=== PATIENT | male | born 1930 | race Caucasian/White ===

== ENCOUNTER 2017-02-24 09:39 | Observation (INO) | payer MEDICARE ==
[~2017-02-24 09:39] MED LIST: ALBU8I INH; ALPR.25 PO; AMLO5TAB22 PO; BEANTAB2 PO; BENZ100 PO; DOXY100T PO; LORTA10 PO; ZITH250T PO; [UNRECOGNIZED DRUG - CODE] PO
[2017-02-24 13:03] VITALS: BP 110/60; PULSE 82; RESP 18; O2SAT 100
[2017-02-24 13:15] LABS: ALKALINE PHOSPHATASE 67 U/L (45-117); ALT (GPT) 16 U/L (12-78); ANION GAP 5 MEQ/L (5-15); AST (GOT) 16 U/L (15-37); BICARBONATE 30.8 MEQ/L (21.0-32.0); BLOOD UREA NITROGEN 23 MG/DL (7-18); CHLORIDE 104 MEQ/L (98-107); GLOMERULAR FILTRATION RATE 73 ML/MIN (>89); SODIUM (NA) 140 MEQ/L (136-145); TOTAL BILIRUBIN ADULT 1.4 MG/DL (0.2-1.0)
[2017-02-24] MEDS ORDERED: ONDANSETRON HCL 4 MG/2 ML VIAL IVP PRN (13:15)
[2017-02-24] MEDS ORDERED: ACETAMINOPHEN 325 MG TAB PO PRN (13:15)
[2017-02-24] MEDS ORDERED: NALOXONE HCL 0.4 MG/ML AMP IV PRN (13:15)
[2017-02-24] MEDS ORDERED: LACTULOSE SYRUP 20 GM/30 ML CUP PO PRN (13:15)
[2017-02-24] MEDS ORDERED: MAGNESIUM HYDROXIDE SUSP 30 ML CUP PO PRN (13:15)
[2017-02-24] MEDS ORDERED: SENNOSIDES 8.6 MG TAB PO PRN (13:15)
[2017-02-24] MEDS ORDERED: BISACODYL 10 MG SUPP RECTAL PRN (13:15)
[2017-02-24] MEDS ORDERED: SODIUM CHLORIDE 0.9% FLUSH 10 ML FLUSH IV FLUSH PRN (13:15)
[2017-02-24 13:20] LABS: AUTOMATED NEUTROPHIL # 3.8 TH/MM3 (1.8-7.7); BASOPHIL % 0.4 % (0.0-2.0); EOSINOPHIL # 0.1 TH/MM3 (0-0.4); EOSINOPHIL % 1.1 % (0.0-4.0); HEMATOCRIT 39.5 % (39.0-51.0); HEMO FLAGS DIFF FINAL; LYMPH % 10.6 % (9.0-44.0); LYMPHOCYTE # 0.5 TH/MM3 (1.0-4.8); MEAN CELL VOLUME 92.5 FL (80.0-100.0); MEAN CORPUSCULAR HEMOGLOBIN 31.5 PG (27.0-34.0); MONO % 7.7 % (0.0-8.0); NEUT % 80.2 % (16.0-70.0); PLATELET COUNT 126 TH/MM3 (150-450); RED BLOOD COUNT 4.27 MIL/MM3 (4.50-5.90); RED CELL DISTRIBUTION WIDTH 13.6 % (11.6-17.2); WHITE BLOOD COUNT 4.7 TH/MM3 (4.0-11.0)
[2017-02-24] MEDS ORDERED: AMLO5TAB2 PO (13:23)
[2017-02-24] MEDS ORDERED: HYDR-3583 PO (13:24)
[2017-02-24] MEDS: SODIUM CHLOR 0.9% 1000 ML INJ 1,000 ML IV SCH ×2 (13:43→22:43)
[2017-02-24 13:44] LABS: BLOOD, URINE SMALL (NEG); COMMENT (UR) CULT NOT INDICATED; CULTURE IF INDICATED CULT NOT INDICATED; GLUCOSE,URINE NEG (NEG); HYALINE CAST, URINE 2 /lpf (RARE); KETONE, URINE 10 mg/dL (NEG); MUCUS URINE FEW /lpf (OCC); NITRITE,URINE NEG (NEG); PH, URINE 5.5 (5.0-8.5); SQUAMOUS EPITHELIAL CELL URINE 1 /hpf (0-5); URINE COLOR YELLOW (YELLW/STRAW)
--- NOTE | 2017-02-24 14:18 | PD ---
HPI Chief Complaint: Altered Mental Status Time Seen by Provider: 13:43 Travel History International Travel<30 days: No Contact w/Intl Traveler<30days: No Traveled to known affect area: No History of Present Illness HPI Patient is an 86-year-old male who comes in due to altered mental status. He does take Lortab and benzodiazepines, and he is unsure if he took the medications or if he took too many. His is currently in the hospital, and he has been very confused. Per EMS, he called 911 today because he thought his was kidnapped. He couldn't remember the past 2 days at all. He cannot report he parked his car. He is aware of the day, place, person, but he is quite confused. PFSH Past Medical History Hx Anticoagulant Therapy: No Arthritis: Yes Asthma: No Autoimmune Disease: No Anxiety: No Depression: No Heart Rhythm Problems: No Cancer: Yes (PROSTATE ) Cardiovascular Problems: Yes (HTN) High Cholesterol: No Chemotherapy: No Congestive Heart Failure: No COPD: No Cerebrovascular Accident: No Diabetes: No Diminished Hearing: No Diverticulitis: Yes Endocrine: No Gastrointestinal Disorders: No Genitourinary: Yes (PROSTATE CA) Hypertension: Yes Kidney Stones: Yes Musculoskeletal: Yes ("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,on pain management") Neurologic: Yes Psychiatric: No Respiratory: No Immunizations Current: Yes Myocardial Infarction: No Radiation Therapy: Yes Past Surgical History Appendectomy: Yes Cholecystectomy: Yes Coronary Artery Bypass Graft: No Eye Surgery: Yes (BILAT CATARACT) Genitourinary Surgery: Yes (RADIATION FOR PROSTATE CA) Hysterectomy: Yes (htn on meds) Joint Replacement: Yes (LEFT HIP) Other Surgery: Yes (MULTIPLE HEMANGIOMAS) Social History Alcohol Use: No (QUIT IN 1997) Tobacco Use: No (quit 1987) Substance Use: No Allergies-Medications (Allergen,Severity, Reaction): Coded Allergies: diclofenac (Unverified Allergy, Severe, BLEEDS, 02/24/17) etodolac (Unverified Allergy, Severe, BLEEDS, 02/24/17) flurbiprofen (Unverified Allergy, Severe, BLEEDS, 02/24/17) ibuprofen (Unverified Allergy, Severe, BLEEDS, 02/24/17) indomethacin (Unverified Allergy, Severe, BLEEDS, 02/24/17) ketoprofen (Unverified Allergy, Severe, BLEEDS, 02/24/17) ketorolac (Unverified Allergy, Severe, BLEEDS, 02/24/17) naproxen (Unverified Allergy, Severe, BLEEDS, 02/24/17) oxaprozin (Unverified Allergy, Severe, BLEEDS, 02/24/17) Reported Meds & Prescriptions Reported Meds & Active Scripts Active Reported Hydrocodone-Acetaminophen 10-325 mg Tab 1 Tab PO Q6H Amlodipine (Amlodipine Besylate) 5 Mg Tab 5 Mg PO BID Review of Systems ROS Limitations: Altered Mental Status Physical Exam Narrative GENERAL: Awake and alert, in no acute distress. SKIN: Focused skin assessment warm/dry. HEAD: Atraumatic. Normocephalic. EYES: Pupils equal and round. No scleral icterus. Extraocular movements intact. ENT: Mucous membranes pink and moist. NECK: Trachea midline. No JVD. CARDIOVASCULAR: Regular rate and rhythm. No murmur appreciated. RESPIRATORY: No accessory muscle use. Clear to auscultation. Breath sounds equal bilaterally. GASTROINTESTINAL: Abdomen soft, non-tender, nondistended. MUSCULOSKELETAL: No obvious deformities. No clubbing. No cyanosis. No edema. NEUROLOGICAL: Awake and alert, but confused. No obvious cranial nerve deficits. Motor grossly within normal limits. Normal speech. PSYCHIATRIC: Appropriate mood and affect; insight and judgment normal. Data Data Orders Orders Chest, Pa & Lat (02/24/17 ) Labs Laboratory Tests Test 02/24/17 09:55 02/24/17 10:52 White Blood Count 4.7 TH/MM3 Red Blood Count 4.27 MIL/MM3 Hemoglobin 13.4 GM/DL Hematocrit 39.5 % Mean Corpuscular Volume 92.5 FL Mean Corpuscular Hemoglobin 31.5 PG Mean Corpuscular Hemoglobin Concent 34.0 % Red Cell Distribution Width 13.6 % Platelet Count 126 TH/MM3 Mean Platelet Volume 7.5 FL Neutrophils (%) (Auto) 80.2 % Lymphocytes (%) (Auto) 10.6 % Monocytes (%) (Auto) 7.7 % Eosinophils (%) (Auto) 1.1 % Basophils (%) (Auto) 0.4 % Neutrophils # (Auto) 3.8 TH/MM3 Lymphocytes # (Auto) 0.5 TH/MM3 Monocytes # (Auto) 0.4 TH/MM3 Eosinophils # (Auto) 0.1 TH/MM3 Basophils # (Auto) 0.0 TH/MM3 CBC Comment DIFF FINAL Differential Comment Blood Urea Nitrogen 23 MG/DL Creatinine 0.97 MG/DL Random Glucose 99 MG/DL Total Protein 7.1 GM/DL Albumin 3.9 GM/DL Calcium Level 9.1 MG/DL Alkaline Phosphatase 67 U/L Aspartate Amino Transf (AST/SGOT) 16 U/L Alanine Aminotransferase (ALT/SGPT) 16 U/L Total Bilirubin 1.4 MG/DL Sodium Level 140 MEQ/L Potassium Level 4.0 MEQ/L Chloride Level 104 MEQ/L Carbon Dioxide Level 30.8 MEQ/L Anion Gap 5 MEQ/L Estimat Glomerular Filtration Rate 73 ML/MIN Troponin I LESS THAN 0.02 NG/ML Urine Color YELLOW Urine Turbidity CLEAR Urine pH 5.5 Urine Specific [place] 1.021 Urine Protein 30 mg/dL Urine Glucose (UA) NEG mg/dL Urine Ketones 10 mg/dL Urine Occult Blood SMALL Urine Nitrite NEG Urine Bilirubin NEG Urine Urobilinogen 4.0 MG/DL Urine Leukocyte Esterase NEG Urine RBC 8 /hpf Urine WBC 1 /hpf Urine Squamous Epithelial Cells 1 /hpf Urine Hyaline Casts 2 /lpf Urine Mucus FEW /lpf Microscopic Urinalysis Comment CULT NOT INDICATED MDM Medical Decision Making Medical Screen Exam Complete: Yes Emergency Medical Condition: Yes Medical Record Reviewed: Yes Interpretation(s) ECG shows normal sinus rhythm at 75 with a right bundle branch block. Differential Diagnosis Electrolyte abnormality versus dehydration versus medication overdose versus infection Narrative Course Patient is a 86-year-old male comes in due to altered mental status. Exam shows patient to be confused, there are no other neurologic abnormalities. IV established, labs sent. Labs show no acute abnormalities. CT of the head performed shows no acute abnormalities. Chest x-ray shows no acute abnormalities. And I do not believe he is safe to go home on his own. This may be due to the medications that he is taking. He'll be placed in observation for further management. Diagnosis Primary Impression: Altered mental status Qualified Codes: R41.0 - Disorientation, unspecified Admitting Information Admitting Physician Requests: Observation Condition: Stable Amanda Wasserman MD Feb 24, 2017 14:18
--- NOTE | 2017-02-24 14:18 | HHI.HP ---
[facility] Primary Care Physician Oneal Stout MD Admission Diagnosis Diagnoses: Chief Complaint: AMS, confusion Travel History International Travel<30 Days: No Contact w/Intl Traveler <30 Da: No Traveled to Known Affected Are: No History of Present Illness Written by Mary Gonzales, acting as scribe for Dr. Logan on 02/24/17 at 14:06. This note was transcribed by scribe SHAHAB Robertson. I, Dr. Alec Logan personally performed the history, physical exam, and medical decision making; and confirmed the accuracy of the information in the transcribed note. Authenticated by Dr. Alec Logan on 02/24/17 at 22:56. 86-year-old male with history of hypertension, chronic pain, hemangiomas, presents with altered mental status, confusion, chest pain. The patient is currently awake, alert, oriented to self, knows he is in a hospital in [place], [place] (although initially thought he was in [place]), states the date is February 2017, and states the president is "Dano Chaidez". The patient reports he woke up today and realized he could not remember anything over the past 2 days. He also reports severe pounding diffuse chest pains and upper abdominal pain over the past few days. He states the pain is worse after he eats. He says he was previously told to eat small meals and it will go away. He also complains of a new nonproductive cough. Denies fevers/chills. He complains of multiple aches and pains in his back and at the site of his hemangiomas. The patient does report he takes [place] 10mg 4x a day for pain. He says if he goes a few hours without the pain meds, his entire body gets "tied up in knots." He denies dysuria but does report increased urinary frequency over the past few months. He has been tolerating oral intake. The patient is concerned about his memory loss and confusion. He is worried that it may be related to a reaction to his pain medications although he has been on the same dose for awhile. He does say that sometimes he will get confused and call his by his son's name , not remember his neighbors names, and this has been going on for awhile. The patient denies ever being evaluated by neurology in the past however his primary care was in the process of working this up and scheduling a head CT. The patient has no other medical complaints to report at this time. Of note, his is a patient here at [facility] on the 9th floor. He states his has a much better memory and helps him remember. Of note, patient has hard time remembering his medical history therefore most is obtained from EMR. Review of Systems ROS Limitations: Poor Historian Except as stated in HPI: all other systems reviewed are Neg Past Family Social History Past Medical History Hypertension Chronic pain Multiple Hemangiomas Prostate cancer s/p radiation Past Surgical History Left hip replacement Cataract surgery Multiple hemangioma resections Reported Medications Hydrocodone-Acetaminophen 10-325 mg Tab 1 Tab PO Q6H Amlodipine (Amlodipine Besylate) 5 Mg Tab 5 Mg PO BID Allergies: Coded Allergies: diclofenac (Unverified Allergy, Severe, BLEEDS, 02/24/17) etodolac (Unverified Allergy, Severe, BLEEDS, 02/24/17) flurbiprofen (Unverified Allergy, Severe, BLEEDS, 02/24/17) ibuprofen (Unverified Allergy, Severe, BLEEDS, 02/24/17) indomethacin (Unverified Allergy, Severe, BLEEDS, 02/24/17) ketoprofen (Unverified Allergy, Severe, BLEEDS, 02/24/17) ketorolac (Unverified Allergy, Severe, BLEEDS, 02/24/17) naproxen (Unverified Allergy, Severe, BLEEDS, 02/24/17) oxaprozin (Unverified Allergy, Severe, BLEEDS, 02/24/17) Active Ordered Medications Current Medications Medications (Trade) Dose Ordered Sig/Lucian Route Start Time Stop Time Status Last Admin Sodium Chloride 1,000 ml @ 100 mls/hr Q10H IV 02/24/17 13:01 02/24/17 13:43 (NS Flush) 2 ml UNSCH PRN IV FLUSH 02/24/17 13:15 (NS Flush) 2 ml BID IV FLUSH 02/24/17 21:00 (Tylenol) 650 mg Q4H PRN PO 02/24/17 13:15 (Zofran Inj) 4 mg Q6H PRN IVP 02/24/17 13:15 (Narcan Inj) 0.4 mg UNSCH PRN IV 02/24/17 13:15 (Sandee-Colace) 1 tab BID PO 02/24/17 21:00 (Milk Of Magnesia Liq) 30 ml Q12H PRN PO 02/24/17 13:15 (Senokot) 17.2 mg Q12H PRN PO 02/24/17 13:15 (Dulcolax Supp) 10 mg DAILY PRN RECTAL 02/24/17 13:15 (Lactulose Liq) 30 ml DAILY PRN PO 02/24/17 13:15 ([place] 7.5-325 Mg) 1 tab Q6H PRN PO 02/24/17 13:15 Family History Mother with meningioma Social History Quit tobacco and alcohol use 30-40years ago 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 SKIN: Warm and dry. No rash. Multiple diffuse hemangiomas HEAD: Normocephalic. Atraumatic. EYES: Pupils equal and round. No scleral icterus. No injection or drainage. ENT: No nasal bleeding or discharge. Mucous membranes pink and moist. NECK: Supple. Trachea midline. CARDIOVASCULAR: Regular rate and rhythm. S1, S2 noted. No murmur appreciated. RESPIRATORY: No accessory muscle use. Clear to auscultation. Breath sounds equal bilaterally. GASTROINTESTINAL: Abdomen soft, non-tender, nondistended. Normoactive bowel sounds x4. MUSCULOSKELETAL: No obvious deformities. Extremities without clubbing, cyanosis , or edema. NEUROLOGICAL: Awake and alert. No obvious cranial nerve deficits. Motor grossly within normal limits. Normal speech. PSYCHIATRIC: Appropriate mood and affect; insight and judgment fair. Laboratory Laboratory Tests Test 02/24/17 09:55 02/24/17 10:52 White Blood Count 4.7 Red Blood Count 4.27 Hemoglobin 13.4 Hematocrit 39.5 Mean Corpuscular Volume 92.5 Mean Corpuscular Hemoglobin 31.5 Mean Corpuscular Hemoglobin Concent 34.0 Red Cell Distribution Width 13.6 Platelet Count 126 Mean Platelet Volume 7.5 Neutrophils (%) (Auto) 80.2 Lymphocytes (%) (Auto) 10.6 Monocytes (%) (Auto) 7.7 Eosinophils (%) (Auto) 1.1 Basophils (%) (Auto) 0.4 Neutrophils # (Auto) 3.8 Lymphocytes # (Auto) 0.5 Monocytes # (Auto) 0.4 Eosinophils # (Auto) 0.1 Basophils # (Auto) 0.0 CBC Comment DIFF FINAL Differential Comment Blood Urea Nitrogen 23 Creatinine 0.97 Random Glucose 99 Total Protein 7.1 Albumin 3.9 Calcium Level 9.1 Alkaline Phosphatase 67 Aspartate Amino Transf (AST/SGOT) 16 Alanine Aminotransferase (ALT/SGPT) 16 Total Bilirubin 1.4 Sodium Level 140 Potassium Level 4.0 Chloride Level 104 Carbon Dioxide Level 30.8 Anion Gap 5 Estimat Glomerular Filtration Rate 73 Troponin I LESS THAN 0.02 Urine Color YELLOW Urine Turbidity CLEAR Urine pH 5.5 Urine Specific [place] 1.021 Urine Protein 30 Urine Glucose (UA) NEG Urine Ketones 10 Urine Occult Blood SMALL Urine Nitrite NEG Urine Bilirubin NEG Urine Urobilinogen 4.0 Urine Leukocyte Esterase NEG Urine RBC 8 Urine WBC 1 Urine Squamous Epithelial Cells 1 Urine Hyaline Casts 2 Urine Mucus FEW Microscopic Urinalysis Comment CULT NOT INDICATED Result Diagram: 02/24/1795402/24/17954 Caprini VTE Risk Assessment Caprini VTE Risk Assessment: Mod/High Risk (score >= 2) Caprini Risk Assessment Model Point Value = 1 Point Value = 2 Point Value = 3 Point Value = 5 Age 41-60 Minor surgery BMI > 25 kg/m2 Swollen legs Varicose veins or History of unexplained or recurrent spontaneous Oral contraceptives or hormone replacement Sepsis (< 1 month) Serious lung disease, including pneumonia (< 1 month) Abnormal pulmonary function Acute myocardial infarction Congestive heart failure (< 1 month) History of inflammatory bowel disease Medical patient at bed rest Age 61-74 Arthroscopic surgery Major open surgery (> 45 min) Laparoscopic surgery (> 45 min) Malignancy Confined to bed (> 72 hours) Immobilizing plaster cast Central venous access Age >= 75 History of VTE Family history of VTE Factor V Leiden Prothrombin [id number] Lupus anticoagulant Anticardiolipin antibodies Elevated serum homocysteine Heparin-induced thrombocytopenia Other congenital or acquired thrombophilia Stroke (< 1 month) Elective arthroplasty Hip, pelvis, or leg fracture Acute spinal cord injury (< 1 month) Prophylaxis Regimen Total Risk Factor Score Risk Level Prophylaxis Regimen 0-1 Low Early ambulation 2 Moderate Order ONE of the following: *Sequential Compression Device (SCD) *Heparin 5000 units SQ BID 3-4 Higher Order ONE of the following medications: *Heparin 5000 units SQ TID *Enoxaparin/Lovenox 40 mg SQ daily (WT < 150 kg, CrCl > 30 mL/min) *Enoxaparin/Lovenox 30 mg SQ daily (WT < 150 kg, CrCl > 10-29 mL/min) *Enoxaparin/Lovenox 30 mg SQ BID (WT < 150 kg, CrCl > 30 mL/min) AND/OR *Sequential Compression Device (SCD) 5 or more Highest Order ONE of the following medications: *Heparin 5000 units SQ TID (Preferred with Epidurals) *Enoxaparin/Lovenox 40 mg SQ daily (WT < 150 kg, CrCl > 30 mL/min) *Enoxaparin/Lovenox 30 mg SQ daily (WT < 150 kg, CrCl > 10-29 mL/min) *Enoxaparin/Lovenox 30 mg SQ BID (WT < 150 kg, CrCl > 30 mL/min) AND *Sequential Compression Device (SCD) Assessment and Plan Problem List: (1) Altered mental status ICD Code: R41.82 - Altered mental status, unspecified Status: Acute (2) Chest pain ICD Code: R07.9 - Chest pain Status: Acute Assessment and Plan 86-year-old male with history of hypertension, chronic pain, hemangiomas, presents with altered mental status, confusion, chest pain. Acute Encephalopathy: presented with AMS, memory loss, confusion. Suspect underlying dementia in combination with pain medications, need to rule out metabolic/toxic etiology. Head CT images reviewed, no acute findings. UA and CXR unremarkable. CBC and BMP essentially unremarkable. -Consult ST/OT/PT -Monitor neuro checks -decrease patient's [place] dose -hold patient's norvasc with borderline hypotension -check orthostatic vital signs -supportive treatment with IVF -consider further imaging vs neurology evaluation tomorrow if no improvement Atypical Chest Pain: sounds GI related, worse after meals. Initial troponin negative. 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
[2017-02-24] MEDS ORDERED: NITROGLYCERIN 0.4 MG SL 25 TABS/BTL SL PRN (15:00)
--- NOTE | 2017-02-24 15:56 | EKG ---
Date Performed: 02/24/2017 Time Performed: 09:59:20 PTAGE: 86 years EKG: Possible ectopic atrial rhythm with first-degree AV block RIGHT BUNDLE BRANCH BLOCK Compare d to previous tracing, the ectopic atrial rhythm is new. Otherwise, no change. ABNORMAL ECG PREVIOUS TRACING 05/06/2014 07.33.02 DOCTOR: Michael Aponte Interpretating Date/Time 02/24/2017 15:55:35
[2017-02-24 16:32] VITALS: BP_SYST 117; BP_SYST 163; BP_DIAS 60; BP_DIAS 77; PULSE 82; RESP 20; TEMP 97.8; O2SAT 96
[2017-02-24 16:40] VITALS: PULSE 86
[2017-02-24 16:51] LABS: CREATINE KINASE 121 U/L (39-308)
[2017-02-24 20:49] VITALS: BP_SYST 114; BP_SYST 152; BP_SYST 165; BP_DIAS 64; BP_DIAS 72; BP_DIAS 76; PULSE 84; RESP 18; TEMP 98.7; O2SAT 97
[2017-02-24] MEDS: SODIUM CHLORIDE 0.9% FLUSH 10 ML FLUSH IV FLUSH SCH (21:00)
--- NOTE | 2017-02-24 21:40 | EKG ---
Date Performed: 02/24/2017 Time Performed: 16:14:20 PTAGE: 86 years EKG: Sinus rhythm RIGHT BUNDLE BRANCH BLOCK ABNORMAL ECG PREVIOUS TRACING : 02/24/2017 09.59 No significant change from previous tracing noted. DOCTOR: Carlos Eduardo Martinez Interpretating Date/Time 02/24/2017 21:38:06
[2017-02-24] MEDS: ACETAMINOPHEN/HYDROcodone 325 MG/7.5 MG TAB PO PRN (22:38)
[2017-02-24] MEDS: DOCUSATE SODIUM 50 MG/SENNA 8.6 MG TAB PO SCH (22:38)
[2017-02-24 23:21] LABS: CREATINE KINASE 143 U/L (39-308)
[2017-02-24 23:30] VITALS: BP 158/78; PULSE 67; RESP 18; TEMP 98.1; O2SAT 97
[2017-02-25 01:23] VITALS: PULSE 86
[2017-02-25 04:25] VITALS: BP 155/75; PULSE 77; RESP 18; TEMP 97.9; O2SAT 95
[2017-02-25 05:31] LABS: AUTOMATED NEUTROPHIL # 3.2 TH/MM3 (1.8-7.7); BASOPHIL % 0.6 % (0.0-2.0); EOSINOPHIL # 0.2 TH/MM3 (0-0.4); EOSINOPHIL % 3.4 % (0.0-4.0); HEMATOCRIT 36.6 % (39.0-51.0); HEMO FLAGS DIFF FINAL; LYMPH % 18.3 % (9.0-44.0); LYMPHOCYTE # 0.9 TH/MM3 (1.0-4.8); MEAN CELL VOLUME 90.5 FL (80.0-100.0); MEAN CORPUSCULAR HEMOGLOBIN 30.7 PG (27.0-34.0); MEAN CORPUSCULAR HGB CONC 33.9 % (32.0-36.0); MONO % 12.2 % (0.0-8.0); NEUT % 65.5 % (16.0-70.0); PLATELET COUNT 119 TH/MM3 (150-450); RED BLOOD COUNT 4.04 MIL/MM3 (4.50-5.90); RED CELL DISTRIBUTION WIDTH 13.2 % (11.6-17.2); WHITE BLOOD COUNT 4.9 TH/MM3 (4.0-11.0)
[2017-02-25 05:58] LABS: BICARBONATE 27.6 MEQ/L (21.0-32.0); POTASSIUM 3.4 MEQ/L (3.5-5.1)
[2017-02-25 06:02] LABS: HDL CHOLESTEROL 54.2 MG/DL (40.0-60.0)
[2017-02-25 07:00] VITALS: PULSE 85
[2017-02-25 07:54] VITALS: BP_SYST 112; BP_SYST 142; BP_SYST 148; BP_DIAS 58; BP_DIAS 69; BP_DIAS 75; PULSE 84; RESP 17; TEMP 98.2; O2SAT 96
[2017-02-25] MEDS ORDERED: POTASSIUM CHLORIDE 20 MEQ CONTROLLED RELEASE TAB PO ONE (08:00)
[2017-02-25] MEDS: DOCUSATE SODIUM 50 MG/SENNA 8.6 MG TAB PO SCH (08:33)
[2017-02-25] MEDS: ACETAMINOPHEN/HYDROcodone 325 MG/7.5 MG TAB PO PRN (08:33)
[2017-02-25] MEDS: SODIUM CHLORIDE 0.9% FLUSH 10 ML FLUSH IV FLUSH SCH (08:33)
[2017-02-25] MEDS: SODIUM CHLOR 0.9% 1000 ML INJ 1,000 ML IV SCH (08:34)
[2017-02-25] MEDS ORDERED: PANTOPRAZOLE SOD 40 MG DELAYED RELEASE TAB PO SCH (09:00)
[2017-02-25] MEDS ORDERED: CYANOCOBALAMIN 1000 MCG/ML VIAL IM SCH (10:30)
[2017-02-25 11:44] VITALS: BP 168/87; PULSE 92; RESP 18; TEMP 98.5; O2SAT 97
--- NOTE | 2017-02-25 14:06 | HHI.FF ---
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 My clinical findings support the need for the requested home health care services because: Ltd mobility - disease progression Med compliance is questionable Limited ability to care for self Impaired cognition/judgement I certify that my clinical findings support that this patient is homebound because: Impaired cognitive ability/safety Unsafe to leave home unassisted Mary Gonzales PA-C Feb 25, 2017 14:06
[2017-02-25] MEDS ORDERED: CYAN1TAB24 PO (14:09)
--- NOTE | 2017-02-25 14:10 | HHI.DCPOC ---
Discharge Care Plan Diagnosis: (1) Orthostatic hypotension (2) Dizziness (3) Memory deficit (4) Multiple hemangiomas Goals to Promote Your Health * To prevent worsening of your condition and complications * To maintain your health at the optimal level Directions to Meet Your Goals Take your medications as prescribed Follow your dietary instruction Follow activity as directed Keep your appointments as scheduled Take your immunizations and boosters as scheduled If your symptoms worsen call your PCP, if no PCP go to Urgent Care Center or Emergency Room Smoking is Dangerous to Your Health. Avoid second hand smoke Call the 24-hour hour crisis hotline for domestic abuse at Mary Gonzales PA-C Feb 25, 2017 14:10
[2017-02-25] MEDS ORDERED: PANT40TA3 PO (14:27)
--- NOTE | 2017-02-25 14:49 | HHI.PR ---
Subjective Remarks Follow up for AMS, confusion, dizziness, chest pain. The patient is currently awake, alert, oriented to person, place, and year. He reports feeling better today. Denies any further dizziness or confusion. Orthostatic blood pressures have been positive, patient admits he has been getting very dizzy upon standing at home however denies any significant dizziness today. He denies any further chest pains. He is tolerating oral intake, denies any nausea or vomiting. He has been ambulating his room without difficulty. He wants to go home. He is agreeable to [facility]. Objective Vitals Vital Signs Date Time Temp Pulse Resp B/P (MAP) Pulse Ox O2 Delivery O2 Flow Rate FiO2 02/25/17 11:44 98.5 92 18 168/87 (114) 97 02/25/17 07:54 98.2 84 17 148/75 (99) 96 142/69 (93) 112/58 (76) 02/25/17 04:25 97.9 77 18 155/75 (101) 95 02/25/17 01:23 86 02/24/17 23:30 98.1 67 18 158/78 (104) 97 02/24/17 20:49 98.7 84 18 165/76 (105) 97 152/72 (98) 114/64 (81) 02/24/17 16:40 86 02/24/17 16:32 97.8 82 20 163/77 (105) 96 153/77 (102) 117/60 (79) 02/24/17 14:41 Result Diagram: 02/25/17 0459 02/25/17 0459 Objective Remarks GENERAL: Well-nourished, well-developed pleasant elderly male patient in [facility]. SKIN: Warm and dry. No rash. Multiple hemangiomas. HEENT: Normocephalic. Atraumatic.Pupils equal and round. Mucous membranes pink and moist. NECK: Supple. Trachea midline. CARDIOVASCULAR: Regular rate and rhythm. S1, S2 noted. No murmur appreciated. RESPIRATORY: No accessory muscle use. Clear to auscultation. Breath sounds equal bilaterally. GASTROINTESTINAL: Abdomen soft, non-tender, nondistended. Normoactive bowel sounds x4. MUSCULOSKELETAL: No obvious deformities. Extremities without clubbing, cyanosis , or edema. NEUROLOGICAL: Awake and alert. No obvious cranial nerve deficits. Motor grossly within normal limits. 5/5 muscle strength in bilateral upper and lower extremities. Normal speech. PSYCHIATRIC: Appropriate mood and affect; insight and judgment fair to normal. Medications and IVs Current Medications Medications (Trade) Dose Ordered Sig/Lucian Route Start Time Stop Time Status Last Admin Sodium Chloride 1,000 ml @ 100 mls/hr Q10H IV 02/24/17 13:01 02/25/17 08:34 (NS Flush) 2 ml UNSCH PRN IV FLUSH 02/24/17 13:15 (NS Flush) 2 ml BID IV FLUSH 02/24/17 21:00 02/25/17 08:33 (Tylenol) 650 mg Q4H PRN PO 02/24/17 13:15 (Zofran Inj) 4 mg Q6H PRN IVP 02/24/17 13:15 (Narcan Inj) 0.4 mg UNSCH PRN IV 02/24/17 13:15 (Sandee-Colace) 1 tab BID PO 02/24/17 21:00 02/25/17 08:33 (Milk Of Magnesia Liq) 30 ml Q12H PRN PO 02/24/17 13:15 (Senokot) 17.2 mg Q12H PRN PO 02/24/17 13:15 (Dulcolax Supp) 10 mg DAILY PRN RECTAL 02/24/17 13:15 (Lactulose Liq) 30 ml DAILY PRN PO 02/24/17 13:15 (Valmeyer 7.5-325 Mg) 1 tab Q6H PRN PO 02/24/17 13:15 02/25/17 08:33 (Protonix) 40 mg DAILY PO 02/25/17 09:00 02/25/17 08:33 (Nitrostat Sl) 0.4 mg Q5M PRN SL 02/24/17 15:00 (Vitamin B12 Inj) 1,000 mcg DAILY IM 02/25/17 10:30 03/04/17 10:29 02/25/17 12:43 A/P Problem List: (1) Altered mental status ICD Code: R41.82 - Altered mental status, unspecified Status: Acute (2) Chest pain ICD Code: R07.9 - Chest pain Status: Acute Assessment and Plan 86-year-old male with history of hypertension, chronic pain, hemangiomas, presents with altered mental status, confusion, chest pain. Acute Encephalopathy: presented with AMS, memory loss, confusion. Suspect underlying dementia in combination with pain medications, need to rule out metabolic/toxic etiology. Head CT images reviewed, no acute findings. UA and CXR unremarkable. CBC and BMP essentially unremarkable. -Monitor neuro checks -decrease patient's Valmeyer dose -hold patient's norvasc with orthostatic hypotension -supportive treatment with IVF -patient much improved after holding Norvasc and decreasing Valmeyer, patient instructed to discontinue Norvasc, and cut back to 1/2 tablet of Valmeyer -encephalopathy resolved -case management arranged [facility] with PT/OT/Nursing/manager of allied health services at discharge Atypical Chest Pain: sounds GI related, worse after meals. Initial troponin negative. -ACS rule out with negative serial cardiac enzymes and EKGs -Monitor on telemetry -nitro prn -started on protonix with possible GI etiology -chest pain resolved Hypertension: with orthostatic hypotension, systolic in low 100s -discontinued patient's norvasc -BP improved -patient instructed to check BP daily, keep log, and report to PCP Vitamin B12 Deficiency -started on vitamin b12 1000mcg daily DVT Prophylaxis: teds/SCDs Discharge Planning Discharge patient to home with C PT/OT/Nursing/manager of allied health services Condition on discharge: Improved Regular Diet as tolerated Ad Kimi activity Rx written: cyanocobalamin 1000mcg daily, protonix 40mg daily Follow-up with primary care physician Dr. Stout within 1 week Problem Qualifiers (1) Altered mental status: Qualified Codes: R41.0 - Disorientation, unspecified Mary Gonzales PA-C Feb 25, 2017 14:48
--- NOTE | 2017-02-27 08:42 | RADRPT ---
EXAM DATE/TIME: 02/24/2017 10:13 [facility] COMPARISON: CT BRAIN W/O CONTRAST, May 05, 2014, 20:25. INDICATIONS : Altered mental status. RADIATION DOSE: 56.35 CTDIvol (mGy) MEDICAL HISTORY : unobtainable SURGICAL HISTORY : unobtainable ENCOUNTER: Initial ACUITY: 1 day PAIN SCALE: 0/10 LOCATION: Bilateral head TECHNIQUE: Multiple contiguous axial images were obtained of the head. Using automated exposure control and adj ustment of the mA and/or kV according to patient size, radiation dose was kept as low as reasonably a chievable to obtain optimal diagnostic quality images. DICOM format image data is available electro nically for review and comparison. FINDINGS: CEREBRUM: There is low attenuation throughout the white matter. The ventricles are normal for age. No evidence of midline shift, mass lesion, hemorrhage or acute infarction. No extra-axial fluid collections are seen. POSTERIOR FOSSA: The cerebellum and brainstem are intact. The 4th ventricle is midline. The cerebellopontine angle i s unremarkable. EXTRACRANIAL: The visualized portion of the orbits is intact. SKULL: The calvaria is intact. No evidence of skull fracture. CONCLUSION: Chronic ischemic small vessel vasculopathy. No acute intracranial abnormalities. Michael Herring MD on February 24, 2017 at 10:34 Board Certified Radiologist. This report was verified electronically.
--- NOTE | 2017-02-27 08:43 | RADRPT ---
EXAM DATE/TIME: 02/24/2017 10:26 [facility] COMPARISON: CHEST SINGLE AP, April 21, 2016, 11:39. INDICATIONS : Weakness and altered mental status. MEDICAL HISTORY : Hypertension. Diverticulitis. Renal calculi. Prostate cancer with radiation SURGICAL HISTORY : Appendectomy. Cholecystectomy. Left hip surgery, bilateral cataract surgery ENCOUNTER: Initial ACUITY: 1 day PAIN SCORE: 2/10 LOCATION: Bilateral upper chest FINDINGS: PA and lateral views of the chest demonstrates hyperinflation which can be seen with CO PD. No infiltrates are seen. Scarring left upper lobe with rib deformities. Heart is normal in size. The mediastinal contours are unremarkable. Osseous structures are intact. CONCLUSION: Hyperinflation which can be seen with COPD. No evidence for an infiltrate. Michael Herring MD on February 24, 2017 at 10:56 Board Certified Radiologist. This report was verified electronically.
== END 2017-02-25 16:11 | disposition home or self-care (01) ==
LOC: EDACCT# → NEPC 09:39 → NEDA 12:19 → NEPGCP 14:29
PROVIDERS: ADMIT Hospitalist; ATTEND Hospitalist
DX: I95.1 Orthostatic hypotension (principal); R42 Dizziness and giddiness; R41.82 Altered mental status, unspecified; I10 Essential (primary) hypertension; G93.40 Encephalopathy, unspecified; R07.89 Other chest pain; D18.00 Hemangioma unspecified site; I44.0 Atrioventricular block, first degree; I45.10 Unspecified right bundle-branch block; Z85.46 Personal history of malignant neoplasm of prostate; Z87.891 Personal history of nicotine dependence; E53.8 Deficiency of other specified B group vitamins; Z92.3 Personal history of irradiation; Z79.899 Other long term (current) drug therapy
CPT/HCPCS: 70450; 71020; 80048; 80053; 80061; 81001; 82550; 82607; 84484; 85025; 86592; 93005; 96125; 96365; 96366; 96372; 97162; 97166; 99285; G0378; G8987; G8988; J3420; J7030

== ENCOUNTER 2017-03-03 22:01 | Emergency (ER) | payer MEDICARE ==
[~2017-03-03 22:01] MED LIST changes: -ALBU8I INH; -ALPR.25 PO; -AMLO5TAB22 PO; -BEANTAB2 PO; -BENZ100 PO; +CYAN1TAB24 PO; -DOXY100T PO; +HYDR-3583 PO; -LORTA10 PO; +PANT40TA3 PO; -ZITH250T PO; -[UNRECOGNIZED DRUG - CODE] PO
[2017-03-03 22:14] VITALS: BP 165/103; PULSE 127; RESP 16; TEMP 98.1; O2SAT 97
[2017-03-03 22:22] VITALS: BP 146/80; PULSE 71; RESP 18; O2SAT 98
--- NOTE | 2017-03-03 22:49 | PD ---
HPI Chief Complaint: Hypertension Time Seen by Provider: 22:18 Travel History International Travel<30 days: No Contact w/Intl Traveler<30days: No Traveled to known affect area: No History of Present Illness HPI The patient is an 86 year old male who presents to the [facility] emergency department with a history of noting earlier this evening that his blood pressure was elevated after he began to feel dizzy. The patient reports that he 's had dizziness in the past, however he thought that this may be related to his blood pressure. When he took his blood pressure his systolic was greater than 200. The patient reports that he became increasingly anxious, therefore he called ambulance services. He reports that he has chronic chest pain related to a hemangioma in his chest which is unchanged from baseline. He denies having any shortness of breath. He reports that he has numbness to the soles of bilateral feet, however he reports that this is also chronic related to hemangiomas. He denies having any abdominal pain, nausea, vomiting, or diarrhea. He reports that he has been eating and drinking well. He reports that his last bowel movement was yesterday. The patient reports that he is on amlodipine for his blood pressure. He reports that this was recently discontinued, however he did discuss that with his primary care physician and started back on the medication. The patient is followed by Dr. Stout for his primary care. On review of systems otherwise patient denies any recent fevers, cough, congestion, neck pain, new urinary symptoms, one-sided weakness, slurred speech, facial droop, difficulty with word finding ability, dizziness currently, or new numbness or tingling to his extremities PFSH Past Medical History Narrative Medical The patient's past medical history is significant for hypertension, chronic pain related to his hemangiomas, history of multiple sites of hemangiomas, history of prostate cancer status post radiation therapy. Hx Anticoagulant Therapy: No Arthritis: Yes Asthma: No Autoimmune Disease: No Anxiety: No Depression: No Heart Rhythm Problems: No Cancer: Yes (PROSTATE ) Cardiovascular Problems: Yes (HTN) High Cholesterol: No Chemotherapy: No Chest Pain: Yes Congestive Heart Failure: No COPD: No Cerebrovascular Accident: No Diabetes: No Diminished Hearing: No Diverticulitis: Yes Endocrine: No Gastrointestinal Disorders: No Genitourinary: Yes (PROSTATE CA) Hypertension: Yes Immune Disorder: No Kidney Stones: Yes Medical other: Yes (HEMANGIOMAS) Musculoskeletal: Yes ("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,on pain management") Neurologic: Yes Psychiatric: No Respiratory: No Immunizations Current: Yes Myocardial Infarction: No Radiation Therapy: Yes (HX FOR PROSTATE CA) Thyroid Disease: No Past Surgical History Narrative Surgical The patient's past surgical history is significant for left hip replacement, cataract surgery, history of multiple hemangioma resections. Appendectomy: Yes Cholecystectomy: Yes Coronary Artery Bypass Graft: No Eye Surgery: Yes (BILAT CATARACT) Genitourinary Surgery: Yes (RADIATION FOR PROSTATE CA) Hysterectomy: Yes (htn on meds) Joint Replacement: Yes (LEFT HIP) Other Surgery: Yes (MULTIPLE HEMANGIOMAS) Social History Alcohol Use: No (QUIT IN 1997) Tobacco Use: No (quit 1987) Substance Use: No Allergies-Medications (Allergen,Severity, Reaction): Coded Allergies: diclofenac (Unverified Allergy, Severe, BLEEDS, 03/03/17) etodolac (Unverified Allergy, Severe, BLEEDS, 03/03/17) flurbiprofen (Unverified Allergy, Severe, BLEEDS, 03/03/17) ibuprofen (Unverified Allergy, Severe, BLEEDS, 03/03/17) indomethacin (Unverified Allergy, Severe, BLEEDS, 03/03/17) ketoprofen (Unverified Allergy, Severe, BLEEDS, 03/03/17) ketorolac (Unverified Allergy, Severe, BLEEDS, 03/03/17) naproxen (Unverified Allergy, Severe, BLEEDS, 03/03/17) oxaprozin (Unverified Allergy, Severe, BLEEDS, 03/03/17) Reported Meds & Prescriptions Reported Meds & Active Scripts Active Pantoprazole (Pantoprazole Sodium) 40 Mg Tab 40 Mg PO DAILY B12 (Cyanocobalamin) 1,000 Mcg Tab 1 Tab PO DAILY Reported Hydrocodone-Acetaminophen 10-325 mg Tab 1 Tab PO Q6H Review of Systems Except as stated in HPI: all other systems reviewed are Neg General / Constitutional: No: Fever Eyes: No: Visual changes HENT: No: Headaches Cardiovascular: Positive: Chest Pain or Discomfort (chronic related to a hemangioma in his chest), No: Dyspnea on exertion Respiratory: No: Shortness of Breath Gastrointestinal: No: Nausea, Vomiting, Diarrhea, Abdominal Pain, Constipation , Indigestion, Loss of Appetite Genitourinary: No: Urgency, Frequency, Dysuria Musculoskeletal: No: Pain Skin: No Rash Neurologic: Positive: Dizziness, No: Weakness, Focal Abnormalities, Coordination Problem, Change in Mentation, Slurred Speech, Sensory Disturbance Psychiatric: No: Depression Endocrine: No: Polydipsia Hematologic/Lymphatic: No: Easy Bruising Physical Exam Narrative General: The patient is a well-developed well-nourished male in no acute distress. Head and Neck exam: Head is normocephalic atraumatic. Eyes: EOMI, pupils are equal round and reactive to light. Nose: Midline septum with pink mucous membranes Mouth: Dentition unremarkable. Moist mucus membranes. Posterior oropharynx is not erythematous. No tonsillar hypertrophy. Uvula midline. Airway patent. Neck: No palpable lymphadenopathy. No nuchal rigidity. No thyromegaly. Cardiovascular: Sinus tachycardia initially in the 120s without murmurs, gallops, or rubs. No pulse deficit to the extremities and simultaneous auscultation and palpation of his radial artery. After further observation the patient's heart rate came down into the 60 Lungs: Clear to auscultation bilaterally. No wheezes, rhonchi, or rales. Abdomen: Soft, without tenderness to palpation in all 4 quadrants of the abdomen. No guarding, rebound, or rigidity. Normal bowel sounds are audible. Extremities: No clubbing, cyanosis, or edema. 2+ pulses in all 4 extremities. No calf tenderness on palpation. The patient has prominent veins in the left arm which he reports is related to his hemangiomas. Back: No spinous process tenderness to palpation. No costovertebral angle tenderness to palpation. No calf tenderness on palpation. Neurologic Exam: Cranial nerves 2-12 were intact on exam. Strength is 5/5 in all 4 extremities. No sensory deficits noted. No nystagmus on extraocular motion testing. The patient has a negative test askew. The patient has no dysdiadochokinesis. The patient has a good finger to nose, good heel to long. The patient is able to ambulate easily without assistance. Skin Exam: No rash noted. Intact skin that is warm and dry. Data Data Last Documented VS Vital Signs Date Time Temp Pulse Resp B/P (MAP) Pulse Ox O2 Delivery O2 Flow Rate FiO2 03/03/17 22:22 71 18 146/80 (102) 98 Room Air 03/03/17 22:14 98.1 Orders Orders Electrocardiogram (03/03/17 22:35) Complete Blood Count With Diff (03/03/17 22:35) Basic Metabolic Panel (Bmp) (03/03/17 22:35) Troponin I (03/03/17 22:35) Chest, Single Ap (03/03/17 22:35) Ct Brain W/O Iv Contrast(Rout) (03/03/17 22:35) Iv Access Insert/Monitor (03/03/17 22:35) Ecg Monitoring (03/03/17 22:35) Oximetry (03/03/17 22:35) Labs Laboratory Tests Test 03/03/17 00:50 White Blood Count 4.9 TH/MM3 Red Blood Count 4.01 MIL/MM3 Hemoglobin 12.7 GM/DL Hematocrit 36.5 % Mean Corpuscular Volume 91.0 FL Mean Corpuscular Hemoglobin 31.5 PG Mean Corpuscular Hemoglobin Concent 34.7 % Red Cell Distribution Width 13.6 % Platelet Count 145 TH/MM3 Mean Platelet Volume 7.6 FL Neutrophils (%) (Auto) 66.9 % Lymphocytes (%) (Auto) 17.7 % Monocytes (%) (Auto) 11.2 % Eosinophils (%) (Auto) 3.6 % Basophils (%) (Auto) 0.6 % Neutrophils # (Auto) 3.3 TH/MM3 Lymphocytes # (Auto) 0.9 TH/MM3 Monocytes # (Auto) 0.5 TH/MM3 Eosinophils # (Auto) 0.2 TH/MM3 Basophils # (Auto) 0.0 TH/MM3 CBC Comment DIFF FINAL Differential Comment Blood Urea Nitrogen 17 MG/DL Creatinine 0.82 MG/DL Random Glucose 107 MG/DL Calcium Level 8.6 MG/DL Sodium Level 140 MEQ/L Potassium Level 3.9 MEQ/L Chloride Level 104 MEQ/L Carbon Dioxide Level 29.5 MEQ/L Anion Gap 7 MEQ/L Estimat Glomerular Filtration Rate 89 ML/MIN Troponin I LESS THAN 0.02 NG/ML MDM Medical Decision Making Medical Screen Exam Complete: Yes Emergency Medical Condition: Yes Medical Record Reviewed: Yes Interpretation(s) Last Impressions Head CT 03/03/17 9921 Signed Impressions: Service Date/Time: Friday, March 03, 2017 23:36 - CONCLUSION: 1. Stable noncontrast head CT without an acute intracranial abnormality identified. 2. Chronic brain changes include generalized atrophy and chronic white matter changes characteristic of chronic microvascular ischemia. 3. Nonspecific mass in the retroconal region on the left, as above. It is of uncertain etiology but in retrospect has been present since 2010 and has only slightly increased in size indicating a nonaggressive process. Dano Bullock MD Chest X-Ray 03/03/17 1765 Signed Impressions: Service Date/Time: Friday, March 03, 2017 22:47 - CONCLUSION: No significant change compared to 04/21/16. No acute focal pulmonary infiltrate. Chronic scattered fibrotic scarring bilaterally. Rome Melo MD Differential Diagnosis Intracranial mass, versus intracranial hemorrhage, versus uncontrolled hypertension, versus anxiety disorder Narrative Course During the course of the patients emergency department visit, the patients history, examination, and differential diagnosis were reviewed with the patient. The patient had IV access obtained and blood work sent for analysis. The patient was placed on a cardiac monitor technician with oximetry and blood pressure monitoring. An ECG was done on arrival. The patient's ECG shows a sinus rhythm heart rate of 83, right bundle branch block is noted, no acute ST segment elevation is noted. QRS duration is 145 ms, QTC 420 ms. Initially the patient was tachycardic on arrival with a blood pressure 165/103. He reports that he initially was feeling anxious on arrival. Shortly after relaxing in the room the patient's heart rate came down to 71, blood pressure 146/80. The patients laboratory studies were reviewed and remarkable for a white count of 4.9, hemoglobin 12.7, platelets 145 with 11.2 monocytes, basic metabolic profile is remarkable for glucose of 107, troponin I is less than 0.02 Radiology studies were reviewed and remarkable for a chest x-ray that shows no significant change compared to an x-ray from April 2016. No acute focal pulmonary infiltrates, chronic scattered fibrotic scarring bilaterally. CT scan of the brain showed no acute abnormality. The patient is encouraged to continue his medication as previously prescribed by his primary care physician. The patient is resting comfortably and feels better, is alert and in no distress. The patients results and examination findings were discussed with the patient. The repeat examination is unremarkable and benign. The history, exam, diagnostic testing, and current condition do not suggest any significant pathology to warrant further testing, continued ED treatment, admission, or surgical evaluation at this point. The vital signs have been stable. The patient does not have uncontrollable pain, intractable vomiting, or other significant symptoms. The patient's condition is stable and appropriate for discharge. The patient will pursue further outpatient evaluation with a primary care physician or other designated or consulting physician as indicated in the discharge instructions. The patient expressed understanding and was agreeable with this plan. Diagnosis Primary Impression: Hypertension Qualified Codes: I10 - Essential (primary) hypertension Additional Impression: Anxiety disorder Qualified Codes: F41.9 - Anxiety disorder, unspecified Referrals: Primary Care Physician 2 days Patient Instructions: General Instructions, Hypertension (ED) Med/Other Pt SpecificInfo: No Change to Meds Disposition: 01 DISCHARGE HOME Condition: Stable Maame Lane MD Mar 03, 2017 22:49
[2017-03-03 23:08] LABS: AUTOMATED NEUTROPHIL # 3.3 TH/MM3 (1.8-7.7); BASOPHIL % 0.6 % (0.0-2.0); EOSINOPHIL # 0.2 TH/MM3 (0-0.4); EOSINOPHIL % 3.6 % (0.0-4.0); HEMATOCRIT 36.5 % (39.0-51.0); HEMO FLAGS DIFF FINAL; LYMPH % 17.7 % (9.0-44.0); LYMPHOCYTE # 0.9 TH/MM3 (1.0-4.8); MEAN CORPUSCULAR HEMOGLOBIN 31.5 PG (27.0-34.0); MEAN CORPUSCULAR HGB CONC 34.7 % (32.0-36.0); MONO % 11.2 % (0.0-8.0); NEUT % 66.9 % (16.0-70.0); PLATELET COUNT 145 TH/MM3 (150-450); RED BLOOD COUNT 4.01 MIL/MM3 (4.50-5.90); RED CELL DISTRIBUTION WIDTH 13.6 % (11.6-17.2); WHITE BLOOD COUNT 4.9 TH/MM3 (4.0-11.0)
--- NOTE | 2017-03-03 23:10 | RADRPT ---
EXAM DATE/TIME: 03/03/2017 22:47 [facility] COMPARISON: CHEST PA & LAT, February 24, 2017, 10:26. CHEST SINGLE AP, April 21, 2016, 11:39. INDICATIONS : Chest pain MEDICAL HISTORY : Hypertension. Diverticulitis. Renal calculi. Prostate cancer with radiation SURGICAL HISTORY : Appendectomy. Cholecystectomy. Left hip surgery, bilateral cataract surgery ENCOUNTER: Initial ACUITY: 1 day PAIN SCORE: 2/10 LOCATION: chest FINDINGS: The heart is stable. Chronic scarring is noted bilaterally. No acute focal infiltrate is noted. No pu lmonary edema is noted. There is no significant change compared to 04/21/16. CONCLUSION: No significant change compared to 04/21/16. No acute focal pulmonary infiltrate. Chronic scattered fi brotic scarring bilaterally. Rome Melo MD on March 03, 2017 at 23:07 Board Certified Radiologist. This report was verified electronically.
[2017-03-03 23:23] LABS: ANION GAP 7 MEQ/L (5-15); BICARBONATE 29.5 MEQ/L (21.0-32.0); BLOOD UREA NITROGEN 17 MG/DL (7-18); CHLORIDE 104 MEQ/L (98-107); GLOMERULAR FILTRATION RATE 89 ML/MIN (>89); POTASSIUM 3.9 MEQ/L (3.5-5.1); SODIUM (NA) 140 MEQ/L (136-145)
--- NOTE | 2017-03-04 00:01 | RADRPT ---
EXAM DATE/TIME: 03/03/2017 23:36 [facility] COMPARISON: CT BRAIN W/O CONTRAST, July 03, 2011, 10:07. CT BRAIN W/O CONTRAST, July 17, 2013, 12:50. CT BRAIN W/O CONTRAST, May 05, 2014, 20:25. CT BRAIN W/O CONTRAST, February 24, 2017, 10:13. INDICATIONS : Cephalgia with elevated blood pressure and dizziness. RADIATION DOSE: 32.55 CTDIvol (mGy) MEDICAL HISTORY : Hypertension. Cardiovascular disease Prostate cancer. SURGICAL HISTORY : Pacemaker. Cholecystectomy. ENCOUNTER: Initial ACUITY: 1 day PAIN SCALE: 5/10 LOCATION: cranial TECHNIQUE: Multiple contiguous axial images were obtained of the head. Using automated exposure control and adj ustment of the mA and/or kV according to patient size, radiation dose was kept as low as reasonably a chievable to obtain optimal diagnostic quality images. DICOM format image data is available electro nically for review and comparison. FINDINGS: CEREBRUM: There is mild generalized atrophy. Ventricles are normal in size given the degree of atrophy present. There is heterogeneous patchy periventricular and subcortical white matter low-attenuation, stable f rom the prior exam. No evidence of midline shift, mass lesion, hemorrhage or acute infarction. No e xtra-axial fluid collections are seen. POSTERIOR FOSSA: The cerebellum and brainstem demonstrate no acute finding. The 4th ventricle is midline. The cerebe llopontine angle is unremarkable. EXTRACRANIAL: Visualized sinuses are clear. There is a slightly lobulated soft tissue density mass in the left retr oconal region laterally and slightly inferior to the globe. In retrospect this finding has been prese nt for at least 6 years and has only slightly increased in size. On the current examination it measur es 16 x 10 mm compared to 13 x 9 mm on the June 2011 exam. It causes no erosion or change in the lateral orbital wall. SKULL: The calvaria is intact. No evidence of skull fracture. CONCLUSION: 1. Stable noncontrast head CT without an acute intracranial abnormality identified. 2. Chronic brain changes include generalized atrophy and chronic white matter changes characteristic of chronic microvascular ischemia. 3. Nonspecific mass in the retroconal region on the left, as above. It is of uncertain etiology but i n retrospect has been present since 2010 and has only slightly increased in size indicating a nonaggr essive process. Dano Bullock MD on March 03, 2017 at 23:53 Board Certified Radiologist. This report was verified electronically.
[2017-03-04 00:49] VITALS: BP 149/74
--- NOTE | 2017-03-04 14:33 | EKG ---
Date Performed: 03/03/2017 Time Performed: 22:51:15 PTAGE: 86 years EKG: Sinus rhythm RIGHT BUNDLE BRANCH BLOCK ABNORMAL ECG Compared to prior tracing no significant change PREVIOUS TRACING : 02/24/2017 16.14 DOCTOR: Juan Knowles Interpretating Date/Time 03/04/2017 14:27:16
== END 2017-03-04 01:01 | disposition home or self-care (01) ==
LOC: NEPE 22:01
DX: I10 Essential (primary) hypertension (principal); F41.9 Anxiety disorder, unspecified; I45.10 Unspecified right bundle-branch block; M19.90 Unspecified osteoarthritis, unspecified site; R07.9 Chest pain, unspecified
CPT/HCPCS: 70450; 71010; 80048; 84484; 85025; 93005; 99285

== ENCOUNTER 2017-03-07 15:30 | Emergency (ER) | payer MEDICARE ==
[~2017-03-07] VITALS: Ht 180.3 cm; Wt 61.5 kg
[2017-03-07 15:48] VITALS: BP 115/72; PULSE 85; RESP 16; TEMP 98.7; O2SAT 97
[2017-03-07 15:50] VITALS: RESP 16; O2SAT 98
--- NOTE | 2017-03-07 15:56 | PD ---
HPI Chief Complaint: GI Complaint Time Seen by Provider: 15:45 Travel History International Travel<30 days: No Contact w/Intl Traveler<30days: No Traveled to known affect area: No History of Present Illness HPI 86 years old male complains of rectal bleeding. Patient states that he has been constipated. Patient states that he had a bowel movement this afternoon and some blood in the stool. Patient denies any headache. Patient denies any states that he has chronic chest wall pain and is not new. Patient denies abdominal pain. Patient denies any back pain. Patient denies GI bleed in the past. Patient denies any fever chills. Patient denies dysuria or frequency. Patient has history of hypertension and chronic B12 deficiency. PFSH Past Medical History Hx Anticoagulant Therapy: No Arthritis: Yes Asthma: No Autoimmune Disease: No Anxiety: No Depression: No Heart Rhythm Problems: No Cancer: Yes (PROSTATE ) Cardiovascular Problems: Yes (HTN) High Cholesterol: No Chemotherapy: No Chest Pain: Yes Congestive Heart Failure: No COPD: No Cerebrovascular Accident: No Diabetes: No Diminished Hearing: No Diverticulitis: Yes Endocrine: No Gastrointestinal Disorders: No Genitourinary: Yes (PROSTATE CA) Hypertension: Yes Immune Disorder: No Kidney Stones: Yes Musculoskeletal: Yes ("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,on pain management") Neurologic: Yes Psychiatric: No Respiratory: No Immunizations Current: Yes Myocardial Infarction: No Radiation Therapy: Yes (HX FOR PROSTATE CA) Thyroid Disease: No Past Surgical History Appendectomy: Yes Cholecystectomy: Yes Coronary Artery Bypass Graft: No Eye Surgery: Yes (BILAT CATARACT) Genitourinary Surgery: Yes (RADIATION FOR PROSTATE CA) Hysterectomy: Yes (htn on meds) Joint Replacement: Yes (LEFT HIP) Other Surgery: Yes (MULTIPLE HEMANGIOMAS) Social History Alcohol Use: No (QUIT IN 1997) Tobacco Use: No (quit 1987) Substance Use: No Allergies-Medications (Allergen,Severity, Reaction): Coded Allergies: diclofenac (Unverified Allergy, Severe, BLEEDS, 03/07/17) etodolac (Unverified Allergy, Severe, BLEEDS, 03/07/17) flurbiprofen (Unverified Allergy, Severe, BLEEDS, 03/07/17) ibuprofen (Unverified Allergy, Severe, BLEEDS, 03/07/17) indomethacin (Unverified Allergy, Severe, BLEEDS, 03/07/17) ketoprofen (Unverified Allergy, Severe, BLEEDS, 03/07/17) ketorolac (Unverified Allergy, Severe, BLEEDS, 03/07/17) naproxen (Unverified Allergy, Severe, BLEEDS, 03/07/17) oxaprozin (Unverified Allergy, Severe, BLEEDS, 03/07/17) Reported Meds & Prescriptions Reported Meds & Active Scripts Active Pantoprazole (Pantoprazole Sodium) 40 Mg Tab 40 Mg PO DAILY B12 (Cyanocobalamin) 1,000 Mcg Tab 1 Tab PO DAILY Reported Hydrocodone-Acetaminophen 10-325 mg Tab 1 Tab PO Q6H Review of Systems General / Constitutional: No: Fever Eyes: No: Visual changes HENT: No: Headaches Cardiovascular: No: Chest Pain or Discomfort Respiratory: No: Shortness of Breath Gastrointestinal: Positive: Hematochezia, No: Abdominal Pain Genitourinary: No: Dysuria Musculoskeletal: No: Pain Skin: No Rash Neurologic: No: Weakness Psychiatric: No: Depression Endocrine: No: Polydipsia Hematologic/Lymphatic: No: Easy Bruising Physical Exam Narrative GENERAL: Well-nourished, well-developed patient. SKIN: Focused skin assessment warm/dry. HEAD: Normocephalic. EYES: No scleral icterus. No injection or drainage. NECK: Supple, trachea midline. No JVD or lymphadenopathy. CARDIOVASCULAR: Regular rate and rhythm without murmurs, gallops, or rubs. RESPIRATORY: Breath sounds equal bilaterally. No accessory muscle use. GASTROINTESTINAL: Abdomen soft, non-tender, nondistended. Rectal exam Hemoccult positive. Patient has yellow stool per rectum. MUSCULOSKELETAL: No cyanosis, or edema. BACK: Nontender without obvious deformity. No CVA tenderness. Neurologic exam: Patient is awake and alert oriented to place and person. Patient moves all extremity well. No obvious focal neurological deficit. Data Data Last Documented VS Vital Signs Date Time Temp Pulse Resp B/P (MAP) Pulse Ox O2 Delivery O2 Flow Rate FiO2 03/07/17 17:38 72 16 152/73 (99) 97 Room Air 03/07/17 15:48 98.7 Orders Orders Electrocardiogram (03/07/17 15:45) Complete Blood Count With Diff (03/07/17 15:45) Comprehensive Metabolic Panel (03/07/17 15:45) Prothrombin Time / Inr (Pt) (03/07/17 15:45) Act Partial Throm Time (Ptt) (03/07/17 15:45) Urinalysis - C+S If Indicated (03/07/17 15:45) Thyroid Stimulating Hormone (03/07/17 15:45) Chest, Single Ap (03/07/17 15:45) Ct Abd/Pel W Iv Contrast(Rout) (03/07/17 15:45) Iv Access Insert/Monitor (03/07/17 15:45) Ecg Monitoring (03/07/17 15:45) Oximetry (03/07/17 15:45) Iohexol 350 Inj (Omnipaque 350 Inj) (03/07/17 17:10) Labs Laboratory Tests Test 03/07/17 16:15 03/07/17 16:55 White Blood Count 6.1 TH/MM3 Red Blood Count 4.06 MIL/MM3 Hemoglobin 12.6 GM/DL Hematocrit 37.9 % Mean Corpuscular Volume 93.4 FL Mean Corpuscular Hemoglobin 31.2 PG Mean Corpuscular Hemoglobin Concent 33.4 % Red Cell Distribution Width 12.9 % Platelet Count 165 TH/MM3 Mean Platelet Volume 6.5 FL Neutrophils (%) (Auto) 74.5 % Lymphocytes (%) (Auto) 12.4 % Monocytes (%) (Auto) 10.2 % Eosinophils (%) (Auto) 2.4 % Basophils (%) (Auto) 0.5 % Neutrophils # (Auto) 4.6 TH/MM3 Lymphocytes # (Auto) 0.8 TH/MM3 Monocytes # (Auto) 0.6 TH/MM3 Eosinophils # (Auto) 0.1 TH/MM3 Basophils # (Auto) 0.0 TH/MM3 CBC Comment DIFF FINAL Differential Comment Prothrombin Time 11.4 SEC Prothromb Time International Ratio 1.0 RATIO Activated Partial Thromboplast Time 27.1 SEC Blood Urea Nitrogen 22 MG/DL Creatinine 1.00 MG/DL Random Glucose 114 MG/DL Total Protein 6.5 GM/DL Albumin 3.4 GM/DL Calcium Level 8.4 MG/DL Alkaline Phosphatase 53 U/L Aspartate Amino Transf (AST/SGOT) 23 U/L Alanine Aminotransferase (ALT/SGPT) 16 U/L Total Bilirubin 0.6 MG/DL Sodium Level 141 MEQ/L Potassium Level 3.9 MEQ/L Chloride Level 104 MEQ/L Carbon Dioxide Level 30.3 MEQ/L Anion Gap 7 MEQ/L Estimat Glomerular Filtration Rate 71 ML/MIN Thyroid Stimulating Hormone 3rd Gen 1.110 uIU/ML Urine Color YELLOW Urine Turbidity CLEAR Urine pH 6.0 Urine Specific [place] 1.025 Urine Protein 30 mg/dL Urine Glucose (UA) NEG mg/dL Urine Ketones NEG mg/dL Urine Occult Blood TRACE Urine Nitrite NEG Urine Bilirubin NEG Urine Leukocyte Esterase NEG Urine RBC 0-3 /hpf Urine WBC 0-2 /hpf Urine Squamous Epithelial Cells 0-5 /hpf Urine Hyaline Casts 0-2 /lpf Urine Mucus MOD /lpf Microscopic Urinalysis Comment CULT NOT INDICATED MDM Medical Decision Making Medical Screen Exam Complete: Yes Emergency Medical Condition: Yes Interpretation(s) Last Impressions Chest X-Ray 03/07/171544 Signed Impressions: Service Date/Time: , March 07, 2017 15:54 - CONCLUSION: No acute disease Dano Uribe MD Abdomen/Pelvis CT 03/07/171544 Signed Impressions: Service Date/Time: , March 07, 2017 17:01 - CONCLUSION: 1. Extensive diverticulosis again noted with no definite focal inflammatory change identified. 2. Nonobstructing right renal calculus and multiple right renal cysts. 3. Status post cholecystectomy. 4. Stable elevation of the right hemidiaphragm. Last Bermudez MD 1747 PM. CBC within normal limit. Hemoglobin 12.6 hematocrit 37.9. Patient at baseline. BUN 22. UA is negative. Differential Diagnosis Differential diagnosis including rectal bleed, hemorrhoidal bleed, colitis, GI mass, anemia. Narrative Course 86 years old male reported seeing blood per stool this afternoon. Rectal exam shows yellow stool. No gross blood noted. Hemoccult-positive. HemaPrompt Point of Care Internal Pos. & Neg. Controls: Passed Fecal Specimen Occult Blood: Positive Diagnosis Primary Impression: GI bleed Qualified Codes: K92.2 - Gastrointestinal hemorrhage, unspecified Patient Instructions: General Instructions Additional Instructions: Continue with pantoprazole as directed. Follow-up with personal physician and GI specialist. Return if persistent rectal bleeding. Med/Other Pt SpecificInfo: No Change to Meds Disposition: DISCHARGE HOME Condition: Stable Manav Sadler MD Mar 07, 2017 15:56
--- NOTE | 2017-03-07 16:02 | RADRPT ---
EXAM DATE/TIME: 03/07/2017 15:54 [facility] COMPARISON: CT PULMONARY ANGIOGRAM, May 05, 2014, 20:30. CHEST SINGLE AP, March 03, 2017, 22:47. INDICATIONS : Shortness of breath. MEDICAL HISTORY : Hypertension. SURGICAL HISTORY : None. ENCOUNTER: Initial ACUITY: 1 day PAIN SCORE: 0/10 LOCATION: Bilateral chest FINDINGS: Lungs are focally clear. No effusion present. Cardiomediastinal contours are stable and satisfactory. Stable rib deformities. CONCLUSION: No acute disease Dano Uribe MD on March 07, 2017 at 15:59 Board Certified Radiologist. This report was verified electronically.
[2017-03-07 16:22] LABS: AUTOMATED NEUTROPHIL # 4.6 TH/MM3 (1.8-7.7); BASOPHIL % 0.5 % (0.0-2.0); EOSINOPHIL # 0.1 TH/MM3 (0-0.4); EOSINOPHIL % 2.4 % (0.0-4.0); HEMATOCRIT 37.9 % (39.0-51.0); HEMO FLAGS DIFF FINAL; LYMPH % 12.4 % (9.0-44.0); LYMPHOCYTE # 0.8 TH/MM3 (1.0-4.8); MEAN CELL VOLUME 93.4 FL (80.0-100.0); MEAN CORPUSCULAR HEMOGLOBIN 31.2 PG (27.0-34.0); MEAN CORPUSCULAR HGB CONC 33.4 % (32.0-36.0); MONO % 10.2 % (0.0-8.0); NEUT % 74.5 % (16.0-70.0); PLATELET COUNT 165 TH/MM3 (150-450); RED BLOOD COUNT 4.06 MIL/MM3 (4.50-5.90); RED CELL DISTRIBUTION WIDTH 12.9 % (11.6-17.2); WHITE BLOOD COUNT 6.1 TH/MM3 (4.0-11.0)
[2017-03-07 16:30] LABS: CHLORIDE 104 MEQ/L (98-107); POTASSIUM 3.9 MEQ/L (3.5-5.1); SODIUM (NA) 141 MEQ/L (136-145)
[2017-03-07 16:34] LABS: ANION GAP 7 MEQ/L (5-15); BICARBONATE 30.3 MEQ/L (21.0-32.0); BLOOD UREA NITROGEN 22 MG/DL (7-18)
[2017-03-07 16:35] LABS: APTT (PATIENT) 27.1 SEC (24.3-30.1); PROTHROMBIN TIME - PATIENT 11.4 SEC (9.8-11.6)
[2017-03-07 16:37] LABS: ALT (GPT) 16 U/L (12-78); AST (GOT) 23 U/L (15-37); GLOMERULAR FILTRATION RATE 71 ML/MIN (>89)
[2017-03-07 16:38] LABS: TOTAL BILIRUBIN ADULT 0.6 MG/DL (0.2-1.0)
[2017-03-07 16:40] LABS: ALKALINE PHOSPHATASE 53 U/L (45-117)
[2017-03-07 16:45] VITALS: BP 147/74; PULSE 67; RESP 16; O2SAT 99
[2017-03-07 17:09] LABS: BLOOD, URINE TRACE (NEG); GLUCOSE,URINE NEG (NEG); KETONE, URINE NEG (NEG); NITRITE,URINE NEG (NEG)
[2017-03-07] MEDS ORDERED: IOHEXOL 350 MG/ML 10 ML VIAL (for RAD DIAG) IVCONTRAST ONE (17:10)
[2017-03-07 17:15] LABS: URINE COLOR YELLOW (YELLW/STRAW)
[2017-03-07 17:16] LABS: COMMENT (UR) CULT NOT INDICATED; CULTURE IF INDICATED CULT NOT INDICATED; HYALINE CAST, URINE 0-2 /lpf (RARE); MUCUS URINE MOD /lpf (OCC); RBC, URINE 0-3 /hpf (0-3); SQUAMOUS EPITHELIAL CELL URINE 0-5 /hpf (0-5); WBC, URINE 0-2 /hpf (0-5)
--- NOTE | 2017-03-07 17:20 | RADRPT ---
EXAM DATE/TIME: 03/07/2017 17:01 [facility] COMPARISON: CT ABDOMEN & PELVIS W/O CONTRAST, September 10, 2015, 19:50. INDICATIONS : Constipation. Rectal bleeding. IV CONTRAST: 85 cc Omnipaque 350 (iohexol) IV ORAL CONTRAST: No oral contrast ingested. RADIATION DOSE: 7.53 CTDIvol (mGy) ; Patient motion MEDICAL HISTORY : Carcinoma, prostate. Diverticulitis. Renal calculi.Hypertension. SURGICAL HISTORY : Appendectomy. Cholecystectomy. ENCOUNTER: Initial ACUITY: 3 days PAIN SCALE: 4/10 LOCATION: Left lower quadrant TECHNIQUE: Volumetric scanning of the abdomen and pelvis was performed. Using automated exposure control and ad justment of the mA and/or kV according to patient size, radiation dose was kept as low as reasonably achievable to obtain optimal diagnostic quality images. DICOM format image data is available electro nically for review and comparison. FINDINGS: LOWER LUNGS: The visualized lower lungs are clear. The right hemidiaphragm remains elevated. LIVER: Homogeneous density without lesion. There is no dilation of the biliary tree. Status post cholecyste ctomy. SPLEEN: Normal size without lesion. PANCREAS: Within normal limits. KIDNEYS: Normal in size and shape. There is no solid mass or hydronephrosis. There are multiple right renal c ysts again noted. There is a nonobstructing calculus again noted in the lower pole. ADRENAL GLANDS: Within normal limits. VASCULAR: There is no aortic aneurysm. BOWEL/MESENTERY: Extensive diverticulosis is again noted involving sigmoid colon. There is no definite focal wall thic kening or inflammatory change. No oral contrast was given limiting sensitivity. There is no free air or fluid. ABDOMINAL WALL: Within normal limits. RETROPERITONEUM: There is no lymphadenopathy. BLADDER: No wall thickening or mass. REPRODUCTIVE: Within normal limits. INGUINAL: There is no lymphadenopathy or hernia. MUSCULOSKELETAL: Osteopenia, degenerative change and mild scoliosis are present. The patient is status post left hip a rthroplasty. CONCLUSION: 1. Extensive diverticulosis again noted with no definite focal inflammatory change identified. 2. Nonobstructing right renal calculus and multiple right renal cysts. 3. Status post cholecystectomy. 4. Stable elevation of the right hemidiaphragm. Last Bermudez MD on March 07, 2017 at 17:15 Board Certified Radiologist. This report was verified electronically.
[2017-03-07 17:38] VITALS: BP 152/73; PULSE 72; RESP 16; O2SAT 97
[2017-03-07 19:09] VITALS: BP 151/75
--- NOTE | 2017-03-09 01:12 | EKG ---
Date Performed: 03/07/2017 Time Performed: 15:59:55 PTAGE: 86 years EKG: Sinus rhythm RIGHT BUNDLE BRANCH BLOCK ABNORMAL ECG PREVIOUS TRACING : 03/03/2017 22.51 Compared to prior tracing no significant change DOCTOR: Refugio Rubin Interpretating Date/Time 03/09/2017 01:11:18
== END 2017-03-07 19:11 | disposition home or self-care (01) ==
LOC: PHED 15:30
DX: K92.2 Gastrointestinal hemorrhage, unspecified (principal); K59.00 Constipation, unspecified; E53.8 Deficiency of other specified B group vitamins; I10 Essential (primary) hypertension; Z85.46 Personal history of malignant neoplasm of prostate; Z87.891 Personal history of nicotine dependence
CPT/HCPCS: 71010; 74177; 80053; 81001; 84443; 85025; 85610; 85730; 93005; 99285; Q9967

== ENCOUNTER 2017-03-20 10:17 | Emergency (ER) | payer MEDICARE ==
[~2017-03-20] VITALS: Ht 181.6 cm; Wt 60.0 kg
[2017-03-20 10:33] VITALS: BP 129/60; PULSE 106; RESP 16; TEMP 99; O2SAT 97
--- NOTE | 2017-03-20 10:39 | PD ---
HPI Chief Complaint: GI Complaint Time Seen by Provider: 10:39 Travel History International Travel<30 days: No Contact w/Intl Traveler<30days: No Traveled to known affect area: No History of Present Illness HPI 86-year-old male came to the emergency room with history of being impacted. He says he had his last bowel movement about 3-4 days ago. Patient is on hydrocodone for chronic pain. He has been trying to manually disimpact. Denies any vomiting or nausea. Appetite has been relatively good. However patient says every time he eats he feels some cramps. Patient was slightly tachycardic. He does have significant past medical history of multiple surgeries as well as prostate cancer and radiation. He appears anxious. [facility] Past Medical History Narrative Medical List of his past medical, surgical, social and family history is reviewed from the nursing note. Hx Anticoagulant Therapy: No (?) Arthritis: Yes Asthma: No Autoimmune Disease: No Anxiety: No Depression: No Heart Rhythm Problems: No Cancer: Yes (PROSTATE ) Cardiovascular Problems: Yes (htn on meds) High Cholesterol: No Chemotherapy: No Chest Pain: Yes Congestive Heart Failure: No COPD: No Cerebrovascular Accident: No Diabetes: No Diminished Hearing: No Diverticulitis: Yes Endocrine: No Gastrointestinal Disorders: No Genitourinary: Yes (PROSTATE CA) Hypertension: Yes Immune Disorder: No Kidney Stones: Yes Musculoskeletal: Yes ("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,on pain management") Neurologic: Yes Psychiatric: No Respiratory: No Immunizations Current: Yes Myocardial Infarction: No Radiation Therapy: Yes (HX FOR PROSTATE CA) Thyroid Disease: No Tetanus Vaccination: < 5 Years Influenza Vaccination: Yes Past Surgical History Appendectomy: Yes Cholecystectomy: Yes Coronary Artery Bypass Graft: No Eye Surgery: Yes (BILAT CATARACT) Genitourinary Surgery: Yes (RADIATION FOR PROSTATE CA) Hysterectomy: Yes (htn on meds) Joint Replacement: Yes (LEFT HIP) Other Surgery: Yes (MULTIPLE HEMANGIOMAS) Social History Alcohol Use: No (QUIT IN 1997) Tobacco Use: No (quit 1987) Substance Use: No Allergies-Medications (Allergen,Severity, Reaction): Coded Allergies: diclofenac (Unverified Allergy, Severe, BLEEDS, 03/20/17) etodolac (Unverified Allergy, Severe, BLEEDS, 03/20/17) flurbiprofen (Unverified Allergy, Severe, BLEEDS, 03/20/17) ibuprofen (Unverified Allergy, Severe, BLEEDS, 03/20/17) indomethacin (Unverified Allergy, Severe, BLEEDS, 03/20/17) ketoprofen (Unverified Allergy, Severe, BLEEDS, 03/20/17) ketorolac (Unverified Allergy, Severe, BLEEDS, 03/20/17) naproxen (Unverified Allergy, Severe, BLEEDS, 03/20/17) oxaprozin (Unverified Allergy, Severe, BLEEDS, 03/20/17) Comments List of his allergies reviewed from the nursing note. Reported Meds & Prescriptions Reported Meds & Active Scripts Active Miralax Powder (Polyethylene Glycol 3350 Powder) 17 Gm Powd 17 Gm PO DAILY Mix and dissolve one measuring cap-ful (17 grams) in water or juice. Pantoprazole (Pantoprazole Sodium) 40 Mg Tab 40 Mg PO DAILY B12 (Cyanocobalamin) 1,000 Mcg Tab 1 Tab PO DAILY Reported Hydrocodone-Acetaminophen 10-325 mg Tab 1 Tab PO Q6H Narrative Medication List of his home medications reviewed from the nursing note. Review of Systems Except as stated in HPI: all other systems reviewed are Neg Physical Exam Narrative GENERAL: Awake, alert, elderly, anxious, moderate distress SKIN: Focused skin assessment warm/dry. HEAD: Atraumatic. Normocephalic. EYES: Pupils equal and round. No scleral icterus. No injection or drainage. ENT: No nasal bleeding or discharge. Mucous membranes pink and moist. NECK: Trachea midline. No JVD. CARDIOVASCULAR: Regular rate and rhythm. No murmur appreciated. RESPIRATORY: No accessory muscle use. Clear to auscultation. Breath sounds equal bilaterally. GASTROINTESTINAL: Abdomen soft, non-tender, nondistended. Hepatic and splenic margins not palpable. MUSCULOSKELETAL: No obvious deformities. No clubbing. No cyanosis. No edema. NEUROLOGICAL: Awake and alert. No obvious cranial nerve deficits. Motor grossly within normal limits. Normal speech. PSYCHIATRIC: Appropriate mood and affect; insight and judgment normal. Data Data Last Documented VS Vital Signs Date Time Temp Pulse Resp B/P (MAP) Pulse Ox O2 Delivery O2 Flow Rate FiO2 03/20/17 12:52 03/20/17 12:13 97 16 97 Room Air 03/20/17 10:33 99.0 Orders Orders Enema (9/13/17 10:43) Complete Blood Count With Diff (03/20/17 10:45) Comprehensive Metabolic Panel (03/20/17 10:45) Iv Access Insert/Monitor (03/20/17 10:45) Ecg Monitoring (03/20/17 10:45) Oximetry (03/20/17 10:45) Sodium Chloride 0.9% Flush (Ns Flush) (03/20/17 10:45) Sodium Chlorid 0.9% 500 Ml Inj (Ns 500 M (03/20/17 10:45) Electrocardiogram (03/20/17 ) Labs Laboratory Tests Test 03/20/17 11:15 White Blood Count 5.6 TH/MM3 Red Blood Count 3.83 MIL/MM3 Hemoglobin 12.3 GM/DL Hematocrit 34.9 % Mean Corpuscular Volume 91.2 FL Mean Corpuscular Hemoglobin 32.1 PG Mean Corpuscular Hemoglobin Concent 35.2 % Red Cell Distribution Width 13.0 % Platelet Count 128 TH/MM3 Mean Platelet Volume 6.5 FL Neutrophils (%) (Auto) 78.2 % Lymphocytes (%) (Auto) 9.5 % Monocytes (%) (Auto) 9.9 % Eosinophils (%) (Auto) 2.0 % Basophils (%) (Auto) 0.4 % Neutrophils # (Auto) 4.4 TH/MM3 Lymphocytes # (Auto) 0.5 TH/MM3 Monocytes # (Auto) 0.6 TH/MM3 Eosinophils # (Auto) 0.1 TH/MM3 Basophils # (Auto) 0.0 TH/MM3 CBC Comment DIFF FINAL Differential Comment Blood Urea Nitrogen 28 MG/DL Creatinine 1.10 MG/DL Random Glucose 107 MG/DL Total Protein 6.5 GM/DL Albumin 3.5 GM/DL Calcium Level 8.2 MG/DL Alkaline Phosphatase 50 U/L Aspartate Amino Transf (AST/SGOT) 14 U/L Alanine Aminotransferase (ALT/SGPT) 16 U/L Total Bilirubin 0.9 MG/DL Sodium Level 141 MEQ/L Potassium Level 4.0 MEQ/L Chloride Level 105 MEQ/L Carbon Dioxide Level 29.6 MEQ/L Anion Gap 6 MEQ/L Estimat Glomerular Filtration Rate 63 ML/MIN [facility] Medical Decision Making Medical Screen Exam Complete: Yes Emergency Medical Condition: Yes Medical Record Reviewed: Yes Interpretation(s) Twelve-lead EKG was reviewed by me. Normal sinus rhythm, normal axis, right bundle branch block, first-degree AV block. Heart rate of 89 bpm. Differential Diagnosis Constipation, fecal impaction, dehydration, left right abnormality Narrative Course 11:07 AM awaiting for the blood test result. I've ordered IV fluid bolus of soapsuds enema. Interestingly patient has been here almost every 2 weeks for the past couple months for different complaints. He claims to have a primary care in which case I am not sure the reason for him utilizing the ER this frequently. 11:52 AM blood test results of back and within acceptable limits. Patient received the enema and has had a good bowel movement. I'll discharge him at this point. Procedures EKG Prior to Arrival: No Diagnosis Primary Impression: Constipation Qualified Codes: K59.03 - Drug induced constipation Additional Impression: Fecal impaction in rectum Referrals: Primary Care Physician Additional Instructions: Please drink lots of fluid and diet with high fiber. Take the medication as per the prescription direction for constipation. Follow-up with your primary care. Med/Other Pt SpecificInfo: Prescription(s) given Scripts Polyethylene Glycol 3350 Powder (Miralax Powder) 17 Gm Powd 17 GM PO DAILY for Constipation, #1 CAN 0 Refills Mix and dissolve one measuring cap-ful (17 grams) in water or juice. Prov: Estephania Camacho MD 03/20/17 Disposition: 01 DISCHARGE HOME Condition: Stable Estephania Camacho MD Mar 20, 2017 10:39
[2017-03-20] MEDS ORDERED: SODIUM CHLORID 0.9% 500 ML INJ 500 ML IV ONE (10:45)
[2017-03-20] MEDS ORDERED: SODIUM CHLORIDE 0.9% FLUSH 10 ML FLUSH IV FLUSH PRN (10:45)
[2017-03-20 11:18] VITALS: O2SAT 94
[2017-03-20 11:21] LABS: AUTOMATED NEUTROPHIL # 4.4 TH/MM3 (1.8-7.7); BASOPHIL % 0.4 % (0.0-2.0); EOSINOPHIL # 0.1 TH/MM3 (0-0.4); HEMATOCRIT 34.9 % (39.0-51.0); HEMO FLAGS DIFF FINAL; LYMPH % 9.5 % (9.0-44.0); LYMPHOCYTE # 0.5 TH/MM3 (1.0-4.8); MEAN CELL VOLUME 91.2 FL (80.0-100.0); MEAN CORPUSCULAR HEMOGLOBIN 32.1 PG (27.0-34.0); MEAN CORPUSCULAR HGB CONC 35.2 % (32.0-36.0); MONO % 9.9 % (0.0-8.0); NEUT % 78.2 % (16.0-70.0); PLATELET COUNT 128 TH/MM3 (150-450); RED BLOOD COUNT 3.83 MIL/MM3 (4.50-5.90); WHITE BLOOD COUNT 5.6 TH/MM3 (4.0-11.0)
[2017-03-20 11:29] LABS: CHLORIDE 105 MEQ/L (98-107); SODIUM (NA) 141 MEQ/L (136-145)
[2017-03-20 11:33] LABS: ANION GAP 6 MEQ/L (5-15); BICARBONATE 29.6 MEQ/L (21.0-32.0); BLOOD UREA NITROGEN 28 MG/DL (7-18)
[2017-03-20 11:36] LABS: ALT (GPT) 16 U/L (12-78); AST (GOT) 14 U/L (15-37); GLOMERULAR FILTRATION RATE 63 ML/MIN (>89)
[2017-03-20 11:38] LABS: TOTAL BILIRUBIN ADULT 0.9 MG/DL (0.2-1.0)
[2017-03-20 11:39] LABS: ALKALINE PHOSPHATASE 50 U/L (45-117)
[2017-03-20] MEDS ORDERED: MIRA3350 PO (11:54)
[2017-03-20 12:13] VITALS: BP 121/77; PULSE 97; RESP 16; O2SAT 97
--- NOTE | 2017-03-20 21:00 | EKG ---
Date Performed: 03/20/2017 Time Performed: 11:32:20 PTAGE: 86 years EKG: Sinus rhythm RIGHT BUNDLE BRANCH BLOCK ABNORMAL ECG PREVIOUS TRACING : 03/07/2017 15.59 Compared to prior tracing no significant change DOCTOR: Lincoln Hawkins Interpretating Date/Time 03/20/2017 20:59:43
== END 2017-03-20 13:00 | disposition home or self-care (01) ==
LOC: PHED 10:17
DX: K59.03 Drug induced constipation (principal); K56.41 Fecal impaction; R00.0 Tachycardia, unspecified; R10.9 Unspecified abdominal pain; R94.31 Abnormal electrocardiogram [ECG] [EKG]; I10 Essential (primary) hypertension; Z87.39 Personal history of other diseases of the musculoskeletal system and connective tissue; Z85.46 Personal history of malignant neoplasm of prostate; Z86.79 Personal history of other diseases of the circulatory system; Z87.19 Personal history of other diseases of the digestive system; Z87.448 Personal history of other diseases of urinary system; Z86.69 Personal history of other diseases of the nervous system and sense organs
CPT/HCPCS: 80053; 85025; 93005; 96360; 96361; 99284; J7040

== ENCOUNTER 2017-08-04 06:54 | Emergency (ER) | payer MEDICARE ==
[~2017-08-04] VITALS: Ht 180.3 cm; Wt 69.0 kg
[~2017-08-04 06:54] MED LIST changes: +MIRA3350 PO
[2017-08-04 06:59] VITALS: BP 161/84; PULSE 126; RESP 18; TEMP 100.6; O2SAT 95
[2017-08-04] MEDS ORDERED: ALPR0.25 PO (07:04)
[2017-08-04] MEDS ORDERED: AMLO5TAB2 PO (07:04)
[2017-08-04 07:12] VITALS: BP 156/77; PULSE 112; RESP 18; O2SAT 94
[2017-08-04 07:14] VITALS: BP 156/77; PULSE 109; RESP 18; TEMP 100.6; O2SAT 96
[2017-08-04] MEDS ORDERED: ACETAMINOPHEN 325 MG TAB PO ONE (07:30)
--- NOTE | 2017-08-04 07:37 | PD ---
HPI Chief Complaint: Fever Time Seen by Provider: 07:29 Travel History International Travel<30 days: No Contact w/Intl Traveler<30days: No Traveled to known affect area: No History of Present Illness HPI Patient presents with complaints of feeling cold. States he called his primary care physician on Saturday secondary to a cough and was started on antibiotic that he is unable to recall. Denies any nausea vomiting or diarrhea. No new rashes. Denies any history of COPD or tobacco exposure. PFSH Past Medical History Hx Anticoagulant Therapy: No (?) Arthritis: Yes Asthma: No Autoimmune Disease: No Anxiety: Yes Depression: No Heart Rhythm Problems: No Cancer: Yes (PROSTATE ) Cardiovascular Problems: Yes (htn on meds) High Cholesterol: No Chemotherapy: No Chest Pain: Yes Congestive Heart Failure: No COPD: No Cerebrovascular Accident: No Diabetes: No Diminished Hearing: No Diverticulitis: Yes Endocrine: No Gastrointestinal Disorders: No Genitourinary: Yes (PROSTATE CA) Hypertension: Yes Immune Disorder: No Kidney Stones: Yes Musculoskeletal: Yes ("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,on pain management") Neurologic: Yes Psychiatric: No Respiratory: No Immunizations Current: Yes Myocardial Infarction: No Radiation Therapy: Yes (HX FOR PROSTATE CA) Thyroid Disease: No Influenza Vaccination: Yes ?: Not Past Surgical History Appendectomy: Yes Cholecystectomy: Yes Coronary Artery Bypass Graft: No Eye Surgery: Yes (BILAT CATARACT) Genitourinary Surgery: Yes (RADIATION FOR PROSTATE CA) Hysterectomy: Yes (htn on meds) Joint Replacement: Yes (LEFT HIP) Other Surgery: Yes (MULTIPLE HEMANGIOMAS) Social History Alcohol Use: No (QUIT IN 1997) Tobacco Use: No (quit 1987) Substance Use: No Allergies-Medications (Allergen,Severity, Reaction): Coded Allergies: diclofenac (Unverified Allergy, Severe, BLEEDS, 08/04/17) etodolac (Unverified Allergy, Severe, BLEEDS, 08/04/17) flurbiprofen (Unverified Allergy, Severe, BLEEDS, 08/04/17) ibuprofen (Unverified Allergy, Severe, BLEEDS, 08/04/17) indomethacin (Unverified Allergy, Severe, BLEEDS, 08/04/17) ketoprofen (Unverified Allergy, Severe, BLEEDS, 08/04/17) ketorolac (Unverified Allergy, Severe, BLEEDS, 08/04/17) naproxen (Unverified Allergy, Severe, BLEEDS, 08/04/17) oxaprozin (Unverified Allergy, Severe, BLEEDS, 08/04/17) Reported Meds & Prescriptions Reported Meds & Active Scripts Active Miralax Powder (Polyethylene Glycol 3350 Powder) 17 Gm Powd 17 Gm PO DAILY Mix and dissolve one measuring cap-ful (17 grams) in water or juice. Reported Alprazolam 0.25 Mg Tab 0.25 Mg PO Q4H PRN Amlodipine (Amlodipine Besylate) 5 Mg Tab 5 Mg PO DAILY Hydrocodone-Acetaminophen 10-325 mg Tab 1 Tab PO Q6H Review of Systems General / Constitutional: Positive: Fever Physical Exam Narrative GENERAL: Well-nourished, well-developed patient. SKIN: Focused skin assessment warm/dry. HEAD: Normocephalic. EYES: No scleral icterus. No injection or drainage. NECK: Supple, trachea midline. No JVD or lymphadenopathy. CARDIOVASCULAR: Regular rate and rhythm without murmurs, gallops, or rubs. RESPIRATORY: Breath sounds equal bilaterally. No accessory muscle use. GASTROINTESTINAL: Abdomen soft, non-tender, nondistended. MUSCULOSKELETAL: No cyanosis, or edema. BACK: Nontender without obvious deformity. No CVA tenderness. Data Data Last Documented VS Vital Signs Date Time Temp Pulse Resp B/P (MAP) Pulse Ox O2 Delivery O2 Flow Rate FiO2 08/04/17 07:14 100.6 109 18 156/77 (103) 96 Room Air Orders Orders Influenzae A/B Antigen (08/04/17 07:29) Acetaminophen (Tylenol) (08/04/17 07:30) MDM Medical Decision Making Medical Screen Exam Complete: Yes Emergency Medical Condition: Yes Differential Diagnosis Viral syndrome, influenza, pneumonia, fever unknown origin Narrative Course Assessment and plan discussed with patient at bedside. Patient given Tylenol. Feeling improved taking fluids. Diagnosis Primary Impression: Fever Qualified Codes: R50.9 - Fever, unspecified Patient Instructions: General Instructions Additional Instructions: Encouraged to continue antibiotics as prescribed. Tylenol for fever. Encourage rest and fluids. Return to emergency room with any onset of new symptoms. Follow-up with PCP. Disposition: 01 DISCHARGE HOME Condition: [place] V[place] MD Aug 04, 2017 07:37
[2017-08-04 09:08] VITALS: BP 137/73; PULSE 98; RESP 18; O2SAT 96
== END 2017-08-04 09:31 | disposition home or self-care (01) ==
LOC: PHED 06:54
DX: R50.9 Fever, unspecified (principal); R05 Cough; M19.90 Unspecified osteoarthritis, unspecified site; F41.9 Anxiety disorder, unspecified; I10 Essential (primary) hypertension; Z87.891 Personal history of nicotine dependence; Z87.442 Personal history of urinary calculi; Z85.46 Personal history of malignant neoplasm of prostate
CPT/HCPCS: 87804; 99283

== ENCOUNTER 2017-09-19 17:14 | Emergency (ER) | payer MEDICARE ==
[~2017-09-19] VITALS: Ht 180.3 cm; Wt 61.5 kg
[~2017-09-19 17:14] MED LIST changes: +ALPR0.25 PO; +AMLO5TAB2 PO; -CYAN1TAB24 PO; -PANT40TA3 PO
[2017-09-19 17:29] VITALS: BP 133/67; PULSE 106; RESP 16; TEMP 99.2; O2SAT 97
[2017-09-19 19:19] VITALS: BP 136/75; PULSE 86; RESP 16; TEMP 98.1; O2SAT 98
--- NOTE | 2017-09-19 19:37 | PD ---
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 Patient states that he is following with his regular physician who states that nothing more can be done, he was placed on a regimen of hydrocodone. He has several concerns, the first is he heard medical marijuana may benefit him, he also wants several hemangiomas removed particularly one on his penis so that he can have intercourse with his again. The patient denies any acute complaints denies any cough congestion shortness of breath abdominal pain nausea vomiting. He states he has an occasional chill at night but this is nothing new for him. Symptoms are mild, context and associated signs symptoms and duration as above. PFSH Past Medical History Hx Anticoagulant Therapy: No (?) Arthritis: Yes Asthma: No Autoimmune Disease: No Anxiety: Yes Depression: No Heart Rhythm Problems: No Cancer: Yes (PROSTATE ) Cardiovascular Problems: Yes (htn on meds) High Cholesterol: No Chemotherapy: No Chest Pain: Yes Congestive Heart Failure: No COPD: No Cerebrovascular Accident: No Diabetes: No Diminished Hearing: No Diverticulitis: Yes Endocrine: No Gastrointestinal Disorders: No Genitourinary: Yes (PROSTATE CA) Heparin Induced Thrombocytopen: No Hypertension: Yes Immune Disorder: No Kidney Stones: Yes Musculoskeletal: Yes ("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,on pain management") Neurologic: Yes Psychiatric: No Respiratory: No Immunizations Current: Yes Myocardial Infarction: No Radiation Therapy: Yes (HX FOR PROSTATE CA) Thyroid Disease: No Tetanus Vaccination: < 5 Years Influenza Vaccination: Yes Past Surgical History Appendectomy: Yes Cholecystectomy: Yes Coronary Artery Bypass Graft: No Eye Surgery: Yes (BILAT CATARACT) Genitourinary Surgery: Yes (RADIATION FOR PROSTATE CA) Hysterectomy: Yes (htn on meds) Joint Replacement: Yes (LEFT HIP) Other Surgery: Yes (MULTIPLE HEMANGIOMAS) Social History Alcohol Use: No (QUIT IN 1997) Tobacco Use: No (quit 1987) Substance Use: No Allergies-Medications (Allergen,Severity, Reaction): Coded Allergies: diclofenac (Unverified Adverse Reaction, Severe, BLEEDS, 09/19/17) etodolac (Unverified Adverse Reaction, Severe, BLEEDS, 09/19/17) flurbiprofen (Unverified Adverse Reaction, Severe, BLEEDS, 09/19/17) ibuprofen (Unverified Adverse Reaction, Severe, BLEEDS, 09/19/17) indomethacin (Unverified Adverse Reaction, Severe, BLEEDS, 09/19/17) ketoprofen (Unverified Adverse Reaction, Severe, BLEEDS, 09/19/17) ketorolac (Unverified Adverse Reaction, Severe, BLEEDS, 09/19/17) naproxen (Unverified Adverse Reaction, Severe, BLEEDS, 09/19/17) oxaprozin (Unverified Adverse Reaction, Severe, BLEEDS, 09/19/17) Reported Meds & Prescriptions Reported Meds & Active Scripts Active Reported Alprazolam 0.25 Mg Tab 0.25 Mg PO Q4H PRN Amlodipine (Amlodipine Besylate) 5 Mg Tab 5 Mg PO DAILY Hydrocodone-Acetaminophen 10-325 mg Tab 1 Tab PO Q6H Review of Systems Except as stated in HPI: all other systems reviewed are Neg Physical Exam Narrative GENERAL: Well-developed well-nourished, no obvious distress, quite pleasant. SKIN: There are multiple superficial hemangiomas of his bilateral upper extremities and lower extremities, there are a few on his trunk, on his oral mucosa. None of which show any active bleeding, no hematomas. HEAD: Atraumatic. Normocephalic. EYES: Pupils equal and round. No scleral icterus. No injection or drainage. ENT: No nasal bleeding or discharge. Mucous membranes pink and moist. NECK: Trachea midline. No JVD. CARDIOVASCULAR: Regular rate and rhythm. No murmur appreciated. RESPIRATORY: No accessory muscle use. Clear to auscultation. Breath sounds equal bilaterally. GASTROINTESTINAL: Abdomen soft, non-tender, nondistended. Hepatic and splenic margins not palpable. MUSCULOSKELETAL: No obvious deformities. No clubbing. No cyanosis. No edema. NEUROLOGICAL: Awake and alert. No obvious cranial nerve deficits. Motor grossly within normal limits. Normal speech. PSYCHIATRIC: Appropriate mood and affect; insight and judgment normal. Data Data Last Documented VS Vital Signs Date Time Temp Pulse Resp B/P (MAP) Pulse Ox O2 Delivery O2 Flow Rate FiO2 09/19/17 19:19 98.1 86 16 136/75 (95) 98 Room Air MDM Medical Decision Making Medical Screen Exam Complete: Yes Emergency Medical Condition: No Differential Diagnosis Generalized pain, chronic pain, hemangiomas Narrative Course Patient room to the emergency department, after discussion with him his symptoms and his concerns I do not appreciate any acute medical emergency in this patient, the patient really wants to have some of these removed and explained that I do not do this here as well as I do not prescribe medical marijuana. I referred him to vascular surgery as well as urology for his concerns and he is quite appreciative of this and states "thank you for giving me some home". I made no promises that any surgical intervention is possible in this patient. He is stable for discharge this time. He was offered pain medicine here and declined Diagnosis Primary Impression: Multiple hemangiomas Additional Impression: Chronic pain Referrals: Rome Clemons MD, Evan M. MD Disposition: 01 DISCHARGE HOME Condition: Stable Rome Baptiste MD Sep 19, 2017 19:37
[2017-09-19 19:56] VITALS: BP 140/60; TEMP 98.1
--- NOTE | 2017-09-20 11:19 | EKG ---
Date Performed: 09/19/2017 Time Performed: 17:19:43 PTAGE: 86 years EKG: SINUS TACHYCARDIA WITH FIRST DEGREE AV BLOCK RIGHT BUNDLE BRANCH BLOCK MINIMAL VOLTAGE CRIT ERIA FOR LVH, CONSIDER NORMAL VARIANT ABNORMAL ECG PREVIOUS TRACING : 03/20/2017 11.32 Since the previous tracing, no significant change noted DOCTOR: Sorin Hartman Interpretating Date/Time 09/20/2017 11:15:17
== END 2017-09-19 19:58 | disposition home or self-care (01) ==
LOC: PHED 17:14
DX: D18.09 Hemangioma of other sites (principal); G89.29 Other chronic pain; I10 Essential (primary) hypertension; R94.31 Abnormal electrocardiogram [ECG] [EKG]
CPT/HCPCS: 93005; 99282